=== PATIENT | female | born 1960 | race Caucasian/White ===

== ENCOUNTER → 2020-10-19 11:11 | Outpatient (CLI) | payer BC, SELFPAY ==
--- NOTE | ~2020-10-19 | XR_ITS ---
EXAMINATION: XR hip RT min 3V w AP pelvis INDICATION: Right hip pain TECHNIQUE: AP view of the pelvis and two views of the right hip are obtained. COMPARISON: None available FINDINGS: Bone alignment is normal. There is no fracture. Mild hip osteoarthritis is noted. There are phleboliths of the left pelvis. Soft tissue calcifications are noted near the left hip. A moderate v olume of colonic stool is present. IMPRESSION: 1. Mild osteoarthritis without acute osseous abnormality. Reviewed, dictated and finalized at location A. R
== END ==
PROVIDERS: PCP Nurse Practitioner; Visit Provider Nurse Practitioner
DX: M16.11 Unilateral primary osteoarthritis, right hip (principal)
CPT/HCPCS: 73502

== ENCOUNTER → 2021-11-01 08:51 | Outpatient (CLI) | payer BC, SELFPAY ==
--- NOTE | ~2021-11-01 | DEXA_ITS ---
Bone Density Report Name: EMILY BURNHAM Age: 61 Sex: Female Ethnicity: White Date of : 1960 Indication: postmenopausal; screening for osteoporosis; height loss; asthma or emphysema; postmenopausal Referring Provider: RABIA, MIKHAIL Study: Bone densitometry was performed. Exam Date: November 01, 2021 Accession number: [id number] Bone Density: Region BMD T-score Z-score Classification AP Spine (L1-L4) 0.893 -1.4 0.1 Osteopenia Femoral Neck (Left) 0.680 -1.5 -0.2 Osteopenia Total Hip (Left) 0.789 -1.3 -0.2 Osteopenia Femoral Neck (Right) 0.689 -1.4 -0.1 Osteopenia Total Hip (Right) 0.794 -1.2 -0.2 Osteopenia Total Hip Mean 0.792 -1.3 -0.2 Osteopenia World Health Organization criteria for BMD impression classify patients as: Normal (T-score at or above -1.0), Osteopenia (T-score between -1.0 and -2.5), or Osteoporosis (T-score at or below -2.5). 10-year Fracture Risk(1): Major Osteoporotic Fracture 7.9% Hip Fracture 0.7% Reported Risk Factors: [place] (), Neck BMD=0.680, BMI=22.8 (1) FRAX(R) Version 3.08. Fracture probability calculated for an untreated patient. Fracture probability may be lower if the patient has received treatment. Previous Exams: Region Exam Age BMD T-score BMD Change BMD Change Date g/cm2 vs Baseline vs Previous AP Spine(L1-L4) 11/01/2021 61 0.893 -1.4 -0.066* -0.066* 12/20/2015 55 0.959 -0.8 Total Hip(Left) 11/01/2021 61 0.789 -1.3 -0.054* -0.054* 12/20/2015 55 0.843 -0.8 Total Hip(Right) 11/01/2021 61 0.794 -1.2 -0.058* -0.058* 12/20/2015 55 0.852 -0.7 *Denotes significance at 95% confidence level, LSC for AP Spine = 0.022 g/cm2, LSC for Total Hip = 0.027 g/cm2 Clinical Information Provided by Patient: Has used the following medications: Vitamin D, Calcium, MTV Has the following medical conditions: Asthma or Emphysema Patient maximum height was 64.5 Menopause Age: 53 Does not regularly consume dairy products Drinks caffeinated beverages Onset of menses at age 13 Number of children 2 Impression: The patient has low bone mass, based on the Left Femoral Neck T-score. The patient has an estimated ten-year risk of hip fracture of 0.7% and an estimated ten-year risk of major fracture of 7.9%, based on the WHO FRAX algorithm. The BMD for the AP Spine(L1-L4) decreased, changing by -0.066 since the last DXA exam. The BMD for the Total Hip(Le
== END ==
PROVIDERS: PCP Nurse Practitioner; Visit Provider Obstetrics & Gynecology
DX: Z78.0 Asymptomatic menopausal state (principal); Z91.89 Other specified personal risk factors, not elsewhere classified; M85.88 Other specified disorders of bone density and structure, other site; M85.852 Other specified disorders of bone density and structure, left thigh; M85.851 Other specified disorders of bone density and structure, right thigh
CPT/HCPCS: 77080

== ENCOUNTER 2023-06-26 10:15 | Outpatient (CLI) | payer BC, SELFPAY ==
[2023-06-26 19:05] LABS: Basophils Absolute Auto 0.1 K/mm3 (0.0-0.1); Basophils Percent Auto 1.3 % (0.2-1.2); Eosinophils Absolute Auto 0.4 K/mm3 (0-0.3); Eosinophils Percent Auto 7.3 % (0-4.4); Hematocrit 44.2 % (37.0-47.0); Hemoglobin 14.1 g/dL (12.0-15.0); Immature Granulocyte Absolute 0.01 K/mm3 (0.00-0.031); Immature Granulocyte Percent A 0.2 % (0-0.5); Lymphocytes Absolute Auto 1.78 K/mm3 (0.9-3.2); Lymphocytes Percent Auto 34.2 % (18.3-44.2); Mean Corpuscular HGB Conc 31.9 g/dl (32-36); Mean Corpuscular Hemoglobin 31.1 pg (26-34); Mean Corpuscular Volume 97.6 fl (80-100); Mean Platelet Volume 10.2 fl (7.4-10.4); Monocytes Absolute Auto 0.5 K/mm3 (0.1-0.6); Monocytes Percent Auto 9.6 % (2.6-8.5); Neutrophils Absolute Auto 2.5 K/mm3 (1.3-6.7); Neutrophils Percent Auto 47.4 % (45.5-73.1); Platelet Count Result 274 k/mm3 (150-375); Red Blood Count 4.53 M/mm3 (4.2-5.4); Red Cell Distribution Width 13.1 % (11.5-14.5); White Blood Count 5.2 K/mm3 (4.5-10.0)
[2023-06-26 20:29] LABS: Alanine Aminotransferase 24 U/L (6-35); Albumin Level 4.5 g/dL (3.5-5.1); Alkaline Phosphatase 53 U/L (38-126); Anion Gap 9 mmol/L (8-16); Aspartate Amino Transferase 43 U/L (14-36); Bilirubin,Total 0.4 mg/dL (0.2-1.3); Blood Urea Nitrogen 18 mg/dL (7-17); Calcium 9.6 mg/dL (8.4-10.2); Carbon Dioxide 28 mmol/L (22-30); Chloride 105 mmol/L (98-107); Cholesterol 180 mg/dL (0-200); Estimated Glomerular Filt Rate > 60; Glucose 87 mg/dL (65-110); HDL Direct 59 mg/dL; Sodium 142 mmol/L (137-145); Triglycerides 62 mg/dL (<150)
[2023-06-26 20:39] LABS: LDL Cholesterol Direct 88 mg/dL
[2023-06-29 11:31] LABS: Vitamin D 1,25 (OH)2 Total 44 pg/mL (18-72); Vitamin D2 1,25 (OH)2 <8 pg/mL; Vitamin D3 1,25 (OH)2 44 pg/mL
== END 2023-06-26 10:16 | disposition home or self-care (01) ==
LOC: ANHGOSHLAB 10:17
PROVIDERS: PCP Family Medicine; Visit Provider Nurse Practitioner Family
DX: E55.9 Vitamin D deficiency, unspecified (principal); I10 Essential (primary) hypertension
CPT/HCPCS: 36415; 80053; 80061; 82652; 85025

== ENCOUNTER 2024-07-15 10:58 | Outpatient (CLI) | payer BC, SELFPAY ==
--- NOTE | ~2024-07-15 | MR_ITS ---
EXAMINATION: MR lumbar spine wo con DATE: 07/15/2024 14:35 INDICATION: Lumbar radiculopathy TECHNIQUE: Magnetic resonance imaging (MRI) of the lumbar spine was performed without intravenous con trast. Sequences included sagittal T2-weighted FSE, sagittal T2-weighted FS FSE, sagittal T1-weighted FSE, and axial T2-weighted FSE. COMPARISON: None FINDINGS: 13 degree thoracolumbar dextroscoliosis. Sagittal alignment is normal. Vertebral body heights are nor mal. Moderate disc height loss at T11-T12. Mild disc height loss at T12-L1 and mild left-sided predom inant disc height loss at T9-T10, T10-T11, L1-L2 and L2-L3. Mild associated fibrovascular degenerativ e endplate changes at a few levels most prominent at T11-T12. There is also a small T1 hyperintense h emangioma at L1. Marrow signal is otherwise unremarkable. The conus medullaris terminates at L2. Ther e is normal signal in the caudal spinal cord. Paravertebral soft tissues are unremarkable. The follow ing disc levels are specifically discussed: T12: Disc is bulging. There is moderate bilateral facet joint osteoarthritis. There is moderate bilat eral neural foraminal stenosis. There is mild central canal stenosis. T12-L1: Disc is bulging. There is moderate left and severe right facet joint osteoarthritis. There is mild bilateral neural foraminal stenosis. There is mild central canal stenosis. L1-L2: Disc is bulging. There is mild left and moderate right facet joint osteoarthritis. There is mi ld bilateral neural foraminal stenosis. There is mild central canal stenosis. L2-L3: Minimal bilateral foraminal disc protrusions. There is hypertrophy of the ligamentum flavum. T here is mild left and moderate right facet joint osteoarthritis. There is mild bilateral neural shima inal stenosis. There is mild central canal stenosis. L3-L4: Small bilateral foraminal zone disc protrusions. There is hypertrophy of the ligamentum flavum . There is moderate bilateral facet joint osteoarthritis. There is mild bilateral neural foraminal st enosis. There is mild central canal stenosis. L4-L5: Disc is bulging. There is hypertrophy of the ligamentum flavum. There is severe bilateral fac et joint osteoarthritis. There is moderate bilateral neural foraminal stenosis. There is moderate to severe central canal stenosis with minimal CSF signal surrounding the centrally clustered nerve roots . L5-S1: Disc is mildly bulging with annular fissure. There is severe bilateral facet joint osteoarthri tis. There is mild bilateral neural foraminal stenosis. There is mild central canal stenosis. IMPRESSION: 1. 13 degree thoracolumbar dextroscoliosis most notable for moderate to severe central canal stenosis at L4-L5. Reviewed, dictated and finalized at location A.
== END 2024-07-15 10:59 | disposition home or self-care (01) ==
PROVIDERS: PCP Family Medicine; Visit Provider Orthopaedic Surgery
DX: M48.061 Spinal stenosis, lumbar region without neurogenic claudication (principal); M41.85 Other forms of scoliosis, thoracolumbar region
CPT/HCPCS: 72148

== ENCOUNTER 2025-02-12 13:50 | Outpatient (CLI) | payer BC, SELFPAY ==
--- NOTE | ~2025-02-12 | DEXA_ITS ---
Bone Density Report Name: EMILY BURNHAM Age: 64 Sex: Female Ethnicity: White Date of : 1960 Indication: postmenopausal; screening for osteoporosis; height loss; asthma or emphysema; Referring Provider: SANTOS, GRICELDA Gutiérrez Study: Bone densitometry was performed. Exam Date: February 12, 2025 Accession number: [id number] Bone Density: Region BMD T-score Z-score Classification AP Spine(L1-L4) 0.984 -0.6 1.1 Normal Femoral Neck (Left) 0.642 -1.9 -0.4 Osteopenia Total Hip (Left) 0.824 -1.0 0.2 Normal Femoral Neck (Right) 0.675 -1.6 -0.1 Osteopenia Total Hip (Right) 0.838 -0.9 0.3 Normal Total Hip Mean 0.831 -1.0 0.3 Normal World Health Organization criteria for BMD impression classify patients as: Normal (T-score at or above -1.0), Osteopenia (T-score between -1.0 and -2.5), or Osteoporosis (T-score at or below -2.5). 10-year Fracture Risk(1): Major Osteoporotic Fracture 9.5% Hip Fracture 1.3% Reported Risk Factors: [place] (), Neck BMD=0.642, BMI=23.2 (1) FRAX(R) Version 3.08. Fracture probability calculated for an untreated patient. Fracture probability may be lower if the patient has received treatment. Clinical Information Provided by Patient: Has used the following medications: Vitamin D, Calcium Has the following medical conditions: Asthma or Emphysema Patient maximum height was 64.5 Menopause Age: 50 Does not regularly consume dairy products Drinks caffeinated beverages Onset of menses at age 13 Number of children 2 Impression: The patient has low bone mass, based on the Left Femoral Neck T-score. The patient has an estimated ten-year risk of hip fracture of 1.3% and an estimated ten-year risk of major fracture of 9.5%, based on the WHO FRAX algorithm. Discussion: BONE DENSITY IS LOW AT ONE OR MORE SKELETAL SITES. This patient's lowest T-score is low at one or more skeletal sites. It meets the World Health Organization's (WHO) criteria for ?low bone mass? (T-score between -1.0 and -2.5). The patient's 10-year risk of fracture as calculated by FRAX is less than the threshold where pharmacological therapy is recommended by the National Osteoporosis Foundation (NOF). However, all treatment decisions require clinical judgment and consideration of individual patient factors, including patient preferences, comorbidities, previous drug use, risk factors not captured in the FRAX model (e.g., frailty, falls, vitamin D deficiency, increased bone turnover, interval significant decline in bone density) and possible under or overestimation of fracture risk by FRAX. The patient should follow a healthful lifestyle (good nutrition with adequate calcium and vitamin D, and appropriate weight-bearing exercise). Follow-Up: Consider repeating this study in 2 to 3 years to reassess this patient's status, or sooner if there is some new clinical indication. Reported by: FAIZAN on 02/12/2025 2:36:00 PM. Reviewed, dictated and finalized at location AAlisha CHEEMA
--- OUTSIDE RECORDS SUMMARY | 2025-02-12 14:09 | XMS_ITS | Referral Summary ---
Author Organization [facility] Address [address] [place] [address] Care Team Providers Care [employer] Name Role Phone Orin Garcia DO Primary Care Provider [phone] Encounters Date Type Department Care Team Description 02/11/2025 Telephone [facility] [address] [place] [address] [address] [place] [address] Tavia Blood MD dexa scan 12/31/2024 Telephone [facility] [address] [place] [address] [address] [place] [address] Tavia Blood MD Orders Follow Up from Last 3 Months Allergies No known active allergies Medications albuterol HFA (PROVENTIL HFA,VENTOLIN HFA,PROAIR HFA) 90 mcg/actuation inhaler every 6 hours 3 Active multivitamin tablet Active ibuprofen (ADVIL,MOTRIN) 200 mg tab/cap Activ e EPINEPHrine 0.3 mg/0.3 mL auto-injection syringe use one injector as needed for anaphylaxis/ home immunotherapy 2 Active acyclovir (ZOVIRAX) 400 mg tablet Take 1 tablet (400 mg total) by mouth daily 3 9 Active traZODone (DESYREL) 300 mg tablet Active hydrocortisone 2.5 % cream APPLY TOPICALLY TO AFFECTED AREA TWICE DAILY NEEDED FOR SKIN IRRITATION 0 Active simvastatin (ZOCOR) 10 mg tablet Take 1 tablet (10 mg total) by mouth daily 0 Active cetirizine (ZyrTEC) 10 mg tablet Take 1 tablet (10 mg total) by mouth daily Active citalopram (CeleXA) 20 mg tablet Take 1 tablet (20 mg total) by mouth daily 1 Active fluticasone propionate (FLONASE) 50 mcg/actuation nasal spray Administer 1 spray into each nostril daily Active budesonide (PULMICORT INHAL) Inhale Active prasterone, dhea, (Intrarosa) 6.5 mg insertIndicati ons:Atrophic vaginitis Insert 6.5 mg into the vagina daily 30 each 11 2 Active Additional Information Patient not taking.Reported on 10/20/2024 cream base no.52, bulk, creamIndicatio ns:Dyspareunia in female Testosterone 0.1%, APPLY 1 CLICK (0.25 MG) TO FINGER AND APPLY VAGINALLY DAILY 10 g 2 4 Active Active Problems Problem Noted Date Diagnosed Date Dyspareunia in female 01/01/2023 Overview (01/01/2023): No better after estrace cream and imvexxy 01/01/23- some better with DHEA(interrosa) Assessment & Plan (10/20/2024 4:25 PM MERCHANDISE PROCESSOR): Better with testosterone . She is due in a few weeks through [facility] Assessment & Plan (09/24/2023 10:37 AM MERCHANDISE PROCESSOR): Doing well with testosterone cream. Will continue on Libido is some better She is getting off her antidepressants too. Assessment & Plan (01/01/2023 3:41 PM CDT): Will try testosterone cream Use reviewed Potential side effects discussed Well woman exam 09/18/2022 Overview (10/20/2024): Lab: Pap: h/o abhl remote. S/p cryo. Normal since. NILM 2023 Pcp is following labs. Ledy: 2023 Colonoscopy:2020- to repeat 2027 BMD:2021 -1.5 will repeat Gardasil: she thinks she may have had. Assessment & Plan (10/20/2024 4:26 PM MERCHANDISE PROCESSOR): Pap done. RTO 12m. I will send the results to the portal. If she has not heard in a week, to call the office. Assessment & Plan (09/24/2023 11:02 AM MERCHANDISE PROCESSOR): Pap done. RTO 12m. I will send the results to the portal. If she has not heard in a week, to call the office. Assessment & Plan (01/01/2023 3:45 PM CDT): Due in August 2023 Assessment & Plan (09/18/2022 3:24 PM MERCHANDISE PROCESSOR): Pap done. RTO 12m. I will send the results to the portal. If she has not heard in a week, to call the office. Adenomatous polyp 08/03/2021 Overview (08/03/2021): Added automatically from request for surgery [id number] Benign colonic polyp 05/25/2016 Excessive cerumen in ear canal 12/15/2015 Allergic rhinitis due to mold 12/15/2015 Chronic tonsillitis 12/15/2015 Sebaceous cyst 11/24/2015 Acne vulgaris 08/11/2015 Keratinizing cyst 08/11/2015 Keratosis, senilis 08/11/2015 Lichen sclerosus et atrophicus 10/10/2014 Assessment & Plan (10/20/2024 4:27 PM MERCHANDISE PROCESSOR): Occ dry Itching is better Assessment & Plan (01/01/2023 3:40 PM CDT): Skin looks healthy today Assessment & Plan (09/18/2022 3:23 PM MERCHANDISE PROCESSOR): I do not see any evidence of this today Asymmetrical sensorineural hearing loss 02/11/20 13 Chronic infection of sinus 08/01/2010 Resolved Problems Problem Noted Date Diagnosed Date Resolved Date Atrophic vaginitis 10/10/2014 Assessment & Plan (09/18/2022 3:23 PM MERCHANDISE PROCESSOR): Options dicussed Will try the interosa Use reviewed If it doesn't work, may try some testosterone cream. Vaginal irritation 10/09/2014 0 Menopausal symptom 03/07/2014 0 Overview (01/26/2017): SYMPT FEM CLIMACT STATE Social History Tobacco Use Types Packs/Day Years Used Date Smoking Tobacco: Former Cigarettes Smokeless Tobacco: Never Tobacco Cessation:Counseling Given: Not Answered Comments:40 years ago Alcohol Use Standard Drinks/Week Comments Yes 0 (1 standard drink = 0.6 oz pur e alcohol) socially Humiliation, Afraid, Rape, and Kick questionnair e Answer Date Recorded Within the last year, have y ou been afraid of your partner or ex-partner? No 10/20/2024 Within the last year, have y ou been humiliated or emotionally abused in other ways by your partner or ex-partner? No Within the last year, have y ou been kicked, hit, slapped, or otherwise physically hurt by your partner or ex-partner? No 10/20/2024 Within the last year, have y ou been raped or forced to have any kind of sexual activity by your partner or ex-partner? No 10/20/2024 AUDIT-C Answer Date Recorded Q1: How often do you have a drink containing alcohol? 4 or more times a week 09/18/2022 Q2: How many drinks containi ng alcohol do you have on a typical day when you are drinking? 5 or 6 Q3: How often do you have si x or more drinks on one occasion? Daily or almost daily 09/18/2022 PHQ-2 Answer Date Recorded PHQ-2 Total Score (If total score is 3 or more points, staff should administer the PHQ-9) 0 10/20/2024 Comments No Sex and Gender Information Value Date Recorded Sex Assigned at Not on file Legal Sex Female 12:48 AM MERCHANDISE PROCESSOR Gender Identity Not on file Sexual Orientation Not on file Last Filed Vital Signs Vital Sign Reading Time Taken Comments Blood Pressure 130/80 10/20/2024 3:37 PM MERCHANDISE PROCESSOR Pulse 68 09/24/2023 10:24 AM MERCHANDISE PROCESSOR Temperature 36.3 C (97.3 F) 09/23/2021 3:49 PM MERCHANDISE PROCESSOR Respiratory Rate 41 09/23/2021 3:49 PM MERCHANDISE PROCESSOR Oxygen Saturation 98% 09/23/2021 3:49 PM MERCHANDISE PROCESSOR Inhaled Oxygen Concentration - - Weight 61.2 kg (135 lb) 10/20/2024 3:37 PM MERCHANDISE PROCESSOR Height 160 cm (5' 3 ) 10/20/2024 3:37 PM MERCHANDISE PROCESSOR Body Mass Index 23.91 10/20/2024 3:37 PM MERCHANDISE PROCESSOR Plan of Treatment Not on file Procedures Procedure Name Priority Date/Time Associated Diagnosis Comments PAP AND HPV, REFLEX TO HPV GENOTYPES Routine 10/20/2024 4:42 PM MERCHANDISE PROCESSOR Well woman exam SCREENING MAMMOGRAM BILATERAL W KM Schedule Routine, Read Routine (OP Routine) 09/23/2024 1:06 PM MERCHANDISE PROCESSOR Screening mammogram, encounter for COLONOSCOPY 09/23/2021 2:20 PM MERCHANDISE PROCESSOR from Last 3 Months or Most Recently Relevant to Health Maintenance Results * Pap and HPV, reflex to HPV Genotypes (10/20/2024 4:42 PM MERCHANDISE PROCESSOR) CLINICAL INFORMATION: [facility] Comment:WWE LMP [facility] [[email or web address]] [facility] Comment:UNKNOWN Previous Pap [facility] Comment:NONE GIVEN Prev. Bx [facility] [[email or web address]] [facility] Comment:NONE GIVEN SOURCE: [facility] Comment:Cervix, Endocervix Pap, specimen adequacy [facility] Comment:SATISFACTORY FOR GEETA LUATION HPV interp [facility] [[email or web address]] [facility] Comment: Cytology Results: Negative for intraepithelial lesion or malignancy. Atrophic pattern; predominantly parabasal cells COMMENTS [facility] Comment: This Pap test has been evaluated with computer assisted technology. Occupational Therapy Aide [facility] Comment: TMK, CT(ASCP) CT screening location: [place] [address] [place] [address] Comment [facility] [[email or web address]] [facility] Comment: EXPLANATORY NOTE: The Pap is a screening test for cervical cancer. It is not a diagnostic test and is subject to false negative and false positive results. It is most reliable when a satisfactory sample, regularly obtained, is submitted with relevant clinical findings and history, and when the Pap result is evaluated along with historic and current clinical information. Human papillomavirus DNA, High Risk E6/E7 Not Detected NOT DETECTED [facility] Comment: Not Detected High Risk HPV types (16,18,31,33,35,39,45,51,52, 56,58,59,66,68) were not detected. Other HPV types which cause anogenital lesions may be present. The significance of the other types of HPV in malignant processes has not been established. Methodology: Real Time PCR Thin prep-Endocervica l 10/20/2024 4:42 PM MERCHANDISE PROCESSOR 10/21/2024 1:34 AM MERCHANDISE PROCESSOR Tavia Blood MD LAB CYTOLOGY ORDERA BLES Final Result [facility] [address] [place] [address] [address] * Screening Mammogram Bilateral [address] (09/23/2024 1:06 PM MERCHANDISE PROCESSOR) Anatomical Region Laterality Modality Breast Bilateral Mammography 09/23/2024 1:48 PM MERCHANDISE PROCESSOR Impressions 09/23/2024 1:48 PM MERCHANDISE PROCESSOR No evidence of malignancy in either breast. FINAL ASSESSMENT: BI-RADS Category 1: Negative. RECOMMENDATION: Recommend return for annual screening mammogram in 12 months. Electronically signed by: Raegan Piedra M.D. Narrative 09/23/2024 1:48 PM MERCHANDISE PROCESSOR EXAMINATION: BILATERAL SCREENING MAMMOGRAM COMPARISON: Dating back to 2014 TECHNIQUE: Full-field 2D and digital breast tomosynthesis (DBT) images were obtained. CAD was utilized. BREAST PARENCHYMAL COMPOSITION: There are scattered areas of fibroglandular density. FINDINGS: There is no suspicious mass, calcification, or distortion in either breast. Self Screening Mammogram IMG MAMMO PROCEDURES Fi nal Result * COLONOSCOPY (09/23/2021 2:20 PM MERCHANDISE PROCESSOR) Anatomical Region Laterality Modality Other Narrative Procedure Note Michael Figueroa MD - 09/23/2021 2:20 PM CST ENDOSCOPY LAB Patient Name: Milly Burnham Procedure Date: 09/23/2021 2:20 PM Date of : 1960 Admit Type: Outpatient Age: 61 Gender: Female Attending MD: Michael Figueroa M.D. Room: [facility] ENDOSCOPY ROOM 03 Note Status: Finalized Procedure: Colonoscopy Indications: High risk colon cancer surveillance: Personalhistory of colonic polyps, Last colonoscopy: August2016 Providers: Michael Figueroa M.D. Referring MD: Katherine Sanders NP Medicines: Monitored Anesthesia Care Complications: No immediate complications. Estimated Blood Loss: Estimated blood loss: none. Procedure: Pre-Anesthesia Assessment: - Prior to the procedure, a History and Physicalwas performed, and patient medications, allergies and sensitivities were reviewed. The patient'stolerance of previous anesthesia was reviewed. The benefits, risks and alternatives of theprocedure and sedation were discussed and informed consentwas obtained. All questions were answered. Please referto the signed informed consent document in the medical record. The scope was passed under direct vision.The [id number] was introduced through the anusand advanced to the cecum, identified by appendiceal orifice and ileocecal valve. The colonoscopy was performed without difficulty. The patient tolerated the procedure well. The quality of the bowel preparation was evaluated using the BBPS (BostonBowel Preparation Scale) with scores of: Right Colon = 2 (minor amount of residual staining, small fragmentsof stool and/or opaque liquid, but mucosa seen well), Transverse Colon = 2 (minor amount of residual staining, small fragments of stool and/or opaque liquid, but mucosa seen well) and Left Colon = 2 (minor amount of residual staining, small fragmentsof stool and/or opaque liquid, but mucosa seen well).The total BBPS score equals 6. Findings: The digital rectal exam was normal. A 4 mm polyp was found in the sigmoid colon. The polyp was sessile.The polyp was removed with a cold snare. Resection and retrieval were complete. Internal hemorrhoids were found during retroflexion. The hemorrhoids were small. The exam was otherwise without abnormality. Impression: - One 4 mm polyp in the sigmoid colon, removed witha cold snare. Resected and retrieved. - Internal hemorrhoids. - The examination was otherwise normal. Recommendation: - Await pathology results. - Repeat colonoscopy in 7 years for surveillance. Attending Participation: I personally performed the entire procedure. Electronically signed by Michael Figueroa MD Michael Figueroa M.D. 09/23/2021 3:32:04 PM Number of Addenda: 0 Note Initiated On: 09/23/2021 2:20 PM Michael Figueroa MD ENDOSCOPY PROCEDURES Final Re sult from Last 3 Months or Most Recently Relevant to Health Maintenance Insurance [facility] Advance Directives For more information, please contact: [phone] * Full Code (Latest Code Status on File) Date Activated Date Inactivated Comments 09/23/2021 12:46 PM 09/23/2021 8:08 PM Care Teams [employer] Relationship Specialty Start Date End Date Orin Garcia DO PCP - General Family Medicine 08/02/23
--- OUTSIDE RECORDS SUMMARY | 2025-02-12 14:09 | XMS_ITS ---
Author Organization [facility] ([address]) Address [address] [place] [address] Care Team Providers Care Foreign Exchange Dealer Name Role Phone Michael Day Primary Care Provider Unavailab kj Viky Gaffney Unavailable [phone] Colette Valencia Unavailable Unavailable Allergies Allergen (clinical drug ingredient) Drug/Non Drug Allergy documented on EMR Reaction Allergy Type Onset Date Status Penicillin vomiting Drug Allergy Active REASON FOR VISIT ARC follow-up - much improved with immunotherapy and sinus surgery Medications Medication SIG (Take, Route, Frequency, Duration) Notes Start Date End Date Status Fluticasone Propionate Diskus 50 MCG/ACT INHALE 1 PUFF EVERY 12 HOURS Inhalation Active SIT (TRADITIONAL) variable per schedule SC per schedule for to be determined Not-Taking Auvi-Q 0.3 MG/0.3ML 0.3 mg intramuscularly once for 1 dose(s) Active FLEXERIL *Please review for potential replacement for e-prescription and drug interaction check* Active Calcium 600 + D 600 MG-200 UNITS 1 TAB(S) ORALLY 3 TIMES A DAY for 30 DAY(S) *Please review and pick correct strength-formula tion from Shun[employer]wa[employer] options. If intended option is not shown, discontinue and re-order from Quick Search* Active Acyclovir 400 MG 1 tab(s) orally once Active traZODone HCl 50MG 1 BY MOUTH AT BEDTIME *Please review and pick correct strength-formula tion from Shun[employer]wa[employer] options. If intended option is not shown, discontinue and re-order from Quick Search* Active CORTIZONE-5 0.5% 1 IVÁN APPLIED TOPICALLY 4 TIMES A DAY for 14 DAY(S) *Please review for potential replacement for e-prescription and drug interaction check* Active FLONASE 50 mcg/inh 1 spray(s) intranasally once a day Active XYZAL 5 mg 1 tablet PO daily fo r 30 Active Citalopram Hydrobromide 20 MG 1 tab(s) orally once a day for 30 day(s) Active Opzelura 1.5 % 1 iván applied topically 2 times a day Active Restasis 0.05 % 1 gtt in each affected eye every 12 hours for 30 day(s) Active AUVI -Q 0.3 mg 0.3 mg intramuscularly once for 1 dose(s) Active NASAL WASHES N/A as directed intranasally as needed for 30 Active Ibuprofen 200 MG 2 tab(s) orally ever y 6 hours Active Cetirizine HCl 10 MG 1 tab(s) orally once a day Active Simvastatin 10 MG 1 tab(s) orally once a day (in the evening) Active Flonase Allergy Relief 50 MCG/ACT 1 spray(s) intranasally once a day Active Social History Tobacco Use: Social History Observation Description Date Details (start date - stop date) Former Smoker NA - NA Smoking Smart Form: Question Answer Notes Additional Findings:Tobacco Non-User Never chewe d tobacco Are you a: former smoker Vital Signs Blood pressure systolic 130 mm Hg 11/05/19 25 Blood pressure diastolic 86 mm Hg 025 Height 64 in 11/05/2024 Weight 140.0 lbs 11/05/2024 BMI 24.03 kg/m2 11/05/2024 Oximetry 98 % 11/05/2024 Encounters Encounter Location Date Provider Diagnosis [facility] [address] [address] 11/05/2024 Viky Gaffney Mild persistent asthma, uncomplicated J45.30 ; Chronic sinusitis, unspecified J32.9 ; Allergic rhinitis due to pollen J30.1 ; Allergic rhinitis due to animal (cat) (dog) hair and dander J30.81 ; Other allergic rhinitis J30.89 and Other chronic allergic conjunctivitis H10.45 Assessments Encounter Date Diagnosis (ICD Code) Assessment Notes Treatment Notes Treatment Clinical Notes Section Notes 11/05/2024 Mild persistent asthma, uncomplicated (ICD-10 - J45.30) Milly has persistent asthma which appears under good control with Flovent. ACT 25. Normal spirometry at last check. PCP has be refilling Flovent. No improvement in the past with Singulair. Asthma action plan reviewed. 11/05/2024 Chronic sinusitis, unspecified (ICD-10 - J32.9) Milly has a history of chronic sinusitis and much improvement following sinus surgery and immunotherapy. Prior labs showed IgG 875, IgA 185, IgM 71, normal T&B cells, normal tetanus. S. Pneumo +07/14 serotypes, low HIB. After receiving Pneumovax, S. Pneumo +10/13 serotypes. 11/05/2024 Allergic rhinitis due to pollen (ICD-10 - J30.1) Milly clearly suffers from atopic disease based upon history and our skin testing. She has received over 5 years of immunotherapy and good control of rhinitis. She would like to discontinue immunotherapy at this time. Instructed to call the office if symptoms increase in the Spring. 11/05/2024 Allergic rhinitis due to animal (cat) (dog) hair and dander (ICD-10 - J30.81) 11/05/2024 Other allergic rhinitis (ICD-10 - J30.89) 11/05/2024 Other chronic allergic conjunctivitis (ICD-10 - H10.45) Given ocular signs and symptoms I encouraged allergy avoidance measures and meds as above. If symptoms persist, consider adding additional medications including intraocular antihistamine/mas t cell stabilizer, PRN 11/05/2024 Other Plan Of Treatment Medication Medication Name Sig Start Date Stop Date Notes Fluticasone Propionate Diskus 50 MCG/ACT INHALE 1 PUFF EVERY 12 HOURS Inhalation FLONASE 50 mcg/inh 1 spray(s) intranasa lly once a day XYZAL 5 mg 1 tablet PO daily for 30 AUVI -Q 0.3 mg 0.3 mg intramuscular ly once for 1 dose(s) NASAL WASHES N/A as directed intranas ally as needed for 30 Treatment Notes Assessment Notes Mild persistent asthma, uncomplicated Gomez has persistent asthma which appears under good control with Flovent. ACT 25. Normal spirometry at last check. PCP has be refilling Flovent. No improvement in the past with Singulair. Asthma action plan reviewed. Chronic sinusitis, unspecified Milly head s a history of chronic sinusitis and much improvement following sinus surgery and immunotherapy. Prior labs showed IgG 875, IgA 185, IgM 71, normal T&B cells, normal tetanus. S. Pneumo +9/23 serotypes, low HIB. After receiving Pneumovax, S. Pneumo +12/23 serotypes. Allergic rhinitis due to pollen Milly stovall suffers from atopic disease based upon history and our skin testing. She has received over 5 years of immunotherapy and good control of rhinitis. She would like to discontinue immunotherapy at this time. Instructed to call the office if symptoms increase in the Spring. Other chronic allergic conjunctivitis Given ocular signs and symptoms I encouraged allergy avoidance measures and meds as above. If symptoms persist, consider adding additional medications including intraocular antihistamine/mast cell stabilizer, PRN Next Appt Details Follow Up: 6 Months, Reason: Spirometry/Flow Volume Loop Progress Notes * Awilda BURNHAMNaomiB:1960 (64 yo F)Acc No.[id number]:11/05/2024 Progress Notes Patient: Milly OBREGON Provider: Ashley Gaffney MD :1960 A ge:64 Y S ex:Female Date:11/05/2024 Address:[address] [place] [address] [id number] Pcp:Michael Day Subjective: * Chief Complaints: * A RC follow-up - much improved with immunotherapy and sinus surgery * HPI: A sthma follow-up: Asthma Survey - Classification A sthma severity classification M ild Persistent * Introduction: I had the pleasure of seeing Catrachito albawarren Burnham, a 64 year old with asthma, allergic rhinitis, and recurrent HSV-1 presenting for f/u evaluation of rhinitis. She was last evaluated 11-21-2023. Since starting immunotherapy and sinus surgery in 2022 improvement in congestion and rhinorrhea.? She continues Flonase and Zyrtec. Sinus surgery was performed 08-21-2023 with balloon sinuplasty and repair of deviated septum. Improvement in frequent of sinusitis. She has only required antibiotics once in the last year. Asthma has been under good control with Flovent. She develops a cough when decreases the dosing. No night symptoms or decrease in exercise tolerance. Her PCP is prescribing Flovent.? Milly has a history of frequent sinusitis and bronchitis. Prior to starting immunotherapy, she r eported frequent eye itching, sneezing, PND, headaches and congestion which occur throughout the year but increase spring and fall months. Grass, tree pollen, and ragweed seem to be a trigger. No history of hospitalization for asthma and last ER visit over 30 years ago. She received SCIT in grade school and her early 30's [address] Dr. Mckinley. She received allergy drops from [facility] for 5 years and started about 10 years ago. She developed dizziness with high dose penicillin for sinusitis several years ago. She tolerates amoxcillin. Today, she reports no fevers, chills, night sweats or other constitutional symptoms. * ROS: A LLERGY: Positive p er the HPI and history, otherwise unremarkable.? S PECIAL SENSES: Positve for n one. C ONSTITUTIONAL: Positive for n one. E NT: Positive p er the HPI and history, otherwise unremarkable.? R ESPIRATORY: Positive p er the HPI and history, otherwise unremakable.? O PHTHALMOLOGY: Positive for p er the HPI and history, otherwise unremarkable. E NDOCRINOLOGY: Positive for n one. C ARDIOLOGY: Positive for n one. G ASTROENTEROLOGY: Positive for n one. U ROLOGY: Positive for n one. D ERMATOLOGY: Positive for p er the HPI and history, otherwise unremakable. N EUROLOGY: Positive for n one. H EMATOLOGY/LYMPH: Positive for n one. M USCULOSKELETAL: Positive for n one. P SYCHOLOGY: Positive for n one. A ll other review of systems per the HPI and history, otherwise unremarkable. * Medical History: * Surgical History: R hinoplasty 2012Balloon sinuplasty 07/2023 * Hospitalization/Major Diagno stic Procedure: D enies Past Hospitalization * Family History: F ather: alive, Yes, diagnosed with Hypertension, Stroke, Heart Disease. M other: alive, Yes, diagnosed with Diabetes mellitus type I, Hypertension. S iblings: alive, Yes. Nathaniel bolden: alive, Yes. 2 brother(s) - healthy. 1 son(s) , 1 daughter(s) - healthy. . * Social History: M arital Status What is your marital status? m arried Nathaniel bolden Do you have children? Y es A lcohol Screening Do you ever drink alcoholic beverages? Y es C affeine: Yes. S moking Have you ever smoked tobacco: f ormer smoker Additional Findings: Tobacco Non-User I ntolerant non-smoker How old were you when you started smoking? 1 7 How old were you when you quit smoking? 2 2 How many cigarettes a day did you smoke? 1 1 to 20 Are you a : f ormer smoker S moking Smart Form Additional Findings:Tobacco Non-User N ever chewed tobacco Are you a: f ormer smoker R ecreational drug use Have you ever used recreational drugs? N o D etails on consumption of certain products? Do you regularly consume products with aspartame; Equal or NutraSweet? Y es Do you regularly consume products with artificial coloring??No Have you ever noticed worsening of your rash with these food items? N o E xercise What kind(s) of exercise do you perform regularly? w alking,biking,yoga,cardio How often do you perform this exercise? d aily A re any of the following personal care products containing fragrance, dye or preservatives used regularly? Shampoo: Y es Conditioner: Y es Soap: Y es Laundry Detergent: Y es Fabric Softener: Y es Deodorant: Y es Perfume, cologne, after shave: N o Air freshners or other scented products: Y es Hair coloring dyes or rinses: Y es O ccupation Are you currenly employed? N o Have you had any job with high exposure to fumes, chemicals, dust or other noxious substances? N o Are you currently a student? N o E nvironmental History Living environment: p rivate home Where is the home located? [place] Age of home: 2 2 How long have you lived there? 5 years or more How many people live in the home? 2 H ome description Basement: Y es Any water damage in basement? N o Smokers in the home? N o Smokers outside the home? N o Air Conditioning? Y es Central Air? Y es Forced air heating? Y es Gas or electric? g as Fireplace? Y es Wood burning stove? N o Do you vacuum the home? Y es Air purification systems? N o Pillow and mattress dust-proof encasings? Y es Do you use a humidifier? Y es Whole house or room? w hole house humidifier Does it have a humidistat? Y es Is it used year-round, seasonal, or as needed? s easonal Is the humidifier cleaned regularly? Y es Do you own any pets? N o Fabric softeners used? Y es Plants in the home? N o Is there carpeting in your bedroom? N o Do you have aymk-ef-ysyt carpeting? N o What is the age of your mattress (years)? 2 What material(s) are used to manufacture your bedding and pillow? o ther What is the age of your pillow (years)? 4 What material are your bedding items made of? s ynthetic Do you sleep with quilts or blankets or a duvet? Y es What material? s ynthetic,natural fiber (e.g. cotton) * Medications: T akingNASAL WASHES N/A 1 QUART OF STERILIZED TAP WATER OR DISTILLED WATER, 1 TSP NACL, 1 PINCH OF BAKING SODA DIRECTED INTRANASALLY NEEDED , Notes to Pharmacist: *Please review for potential replacement for e-prescription and drug interaction check*Flonase Allergy Relief 50 MCG/ACT Suspension 1 spray(s) intranasally once a day Simvastatin 10 MG Tablet 1 tab(s) orally once a day (in the evening) Ibuprofen 200 MG Tablet 2 tab(s) orally every 6 hours Cetirizine HCl 10 MG Tablet 1 tab(s) orally once a day Restasis 0.05 % Emulsion 1 gtt in each affected eye every 12 hours Opzelura 1.5 % Cream 1 iván applied topically 2 times a day Citalopram Hydrobromide 20 MG Tablet 1 tab(s) orally once a day CORTIZONE-5 0.5% OINTMENT 1 IVÁN APPLIED TOPICALLY 4 TIMES A DAY , Notes to Pharmacist: *Please review for potential replacement for e-prescription and drug interaction check*traZODone HCl 50MG 1 BY MOUTH AT BEDTIME , Notes to Pharmacist: *Please review and pick correct strength-formulation from [employer] options. If intended option is not shown, discontinue and re-order from Quick Search*Acyclovir 400 MG Tablet 1 tab(s) orally once FLEXERIL , Notes to Pharmacist: *Please review for potential replacement for e-prescription and drug interaction check*Calcium 600 + D 600 MG-200 UNITS TABLET 1 TAB(S) ORALLY 3 TIMES A DAY , Notes to Pharmacist: *Please review and pick correct strength-formulation from [employer] options. If intended option is not shown, discontinue and re-order from Quick Search*Auvi-Q 0.3 MG/0.3ML Solution Auto-injector 0.3 mg intramuscularly once Fluticasone Propionate Diskus 50 MCG/ACT Aerosol Powder Breath Activated INHALE 1 PUFF EVERY 12 HOURS Inhalation Taking NASAL WASHES N/A 1 QUART OF STERILIZED TAP WATER OR DISTILLED WATER, 1 TSP NACL, 1 PINCH OF BAKING SODA DIRECTED INTRANASALLY NEEDED , Notes to Pharmacist: *Please review for potential replacement for e-prescription and drug interaction check*Taking Flonase Allergy Relief 50 MCG/ACT Suspension 1 spray(s) intranasally once a day Taking Simvastatin 10 MG Tablet 1 tab(s) orally once a day (in the evening) Taking Ibuprofen 200 MG Tablet 2 tab(s) orally every 6 hours Taking Cetirizine HCl 10 MG Tablet 1 tab(s) orally once a day Taking Restasis 0.05 % Emulsion 1 gtt in each affected eye every 12 hours Taking Opzelura 1.5 % Cream 1 iván applied topically 2 times a day Taking Citalopram Hydrobromide 20 MG Tablet 1 tab(s) orally once a day Taking CORTIZONE-5 0.5% OINTMENT 1 IVÁN APPLIED TOPICALLY 4 TIMES A DAY , Notes to Pharmacist: *Please review for potential replacement for e-prescription and drug interaction check*Taking traZODone HCl 50MG 1 BY MOUTH AT BEDTIME , Notes to Pharmacist: *Please review and pick correct strength-formulation from [employer] options. If intended option is not shown, discontinue and re-order from Quick Search*Taking Acyclovir 400 MG Tablet 1 tab(s) orally once Taking FLEXERIL , Notes to Pharmacist: *Please review for potential replacement for e-prescription and drug interaction check*Taking Calcium 600 + D 600 MG-200 UNITS TABLET 1 TAB(S) ORALLY 3 TIMES A DAY , Notes to Pharmacist: *Please review and pick correct strength-formulation from [employer] options. If intended option is not shown, discontinue and re-order from Quick Search*Taking Auvi-Q 0.3 MG/0.3ML Solution Auto-injector 0.3 mg intramuscularly once Taking Fluticasone Propionate Diskus 50 MCG/ACT Aerosol Powder Breath Activated INHALE 1 PUFF EVERY 12 HOURS Inhalation Not-Taking/PRNSIT (TRADITIONAL) variable see record per schedule SC per schedule Not-Taking/PRN SIT (TRADITIONAL) variable see record per schedule SC per schedule DiscontinuedSIT (TRADITIONAL) VARIABLE SEE RECORD PER SCHEDULE SC PER SCHEDULE , Notes to Pharmacist: *Please review for potential replacement for e-prescription and drug interaction check*PULMICORT FLEXHALER 180 mcg/inh powder 1 puff(s) inhaled 2 times a day XYZAL 5 mg tablet 1 tablet PO daily PULMICORT FLEXHALER 180 mcg/inh powder 1 puff(s) inhaled 2 times a day XYZAL 5 mg tablet 1 tablet PO daily FLONASE 50 mcg/inh spray 1 spray(s) intranasally once a day SIMVASTATIN 10 mg tablet 1 tab(s) orally once a day (in the evening) IBUPROFEN 200 mg tablet 2 tab(s) orally every 6 hours CETIRIZINE 10 mg tablet 1 tab(s) orally once a day RESTASIS 0.05% emulsion 1 gtt in each affected eye every 12 hours OPZELURA 1.5% cream 1 iván applied topically 2 times a day CITALOPRAM 20 mg tablet 1 tab(s) orally once a day TRAZODONE 50mg 1 by mouth at bedtime ACYCLOVIR 400 mg tablet 1 tab(s) orally once CALCIUM 600+D 600 mg-200 units tablet 1 tab(s) orally 3 times a day AUVI -Q 0.3 mg kit 0.3 mg intramuscularly once Pulmicort Flexhaler 180 MCG/ACT Aerosol Powder Breath Activated 1 puff(s) inhaled 2 times a day Xyzal Allergy 24HR 5 MG Tablet 1 tablet PO daily TRAZADONE 50MG 1 BY MOUTH AT BEDTIME , Notes to Pharmacist: *Please review for potential replacement for e-prescription and drug interaction check*PROAIR HFA 90 MCG/INH AEROSOL 2 PUFF(S) INHALED 4 TIMES A DAY , Notes to Pharmacist: *Please review for potential replacement for e-prescription and drug interaction check*Medication List reviewed and reconciled with the patientDiscontinued SIT (TRADITIONAL) VARIABLE SEE RECORD PER SCHEDULE SC PER SCHEDULE , Notes to Pharmacist: *Please review for potential replacement for e-prescription and drug interaction check*Discontinued PULMICORT FLEXHALER 180 mcg/inh powder 1 puff(s) inhaled 2 times a day Discontinued XYZAL 5 mg tablet 1 tablet PO daily Discontinued PULMICORT FLEXHALER 180 mcg/inh powder 1 puff(s) inhaled 2 times a day Discontinued XYZAL 5 mg tablet 1 tablet PO daily Discontinued FLONASE 50 mcg/inh spray 1 spray(s) intranasally once a day Discontinued SIMVASTATIN 10 mg tablet 1 tab(s) orally once a day (in the evening) Discontinued IBUPROFEN 200 mg tablet 2 tab(s) orally every 6 hours Discontinued CETIRIZINE 10 mg tablet 1 tab(s) orally once a day Discontinued RESTASIS 0.05% emulsion 1 gtt in each affected eye every 12 hours Discontinued OPZELURA 1.5% cream 1 iván applied topically 2 times a day Discontinued CITALOPRAM 20 mg tablet 1 tab(s) orally once a day Discontinued TRAZODONE 50mg 1 by mouth at bedtime Discontinued ACYCLOVIR 400 mg tablet 1 tab(s) orally once Discontinued CALCIUM 600+D 600 mg- 200 units tablet 1 tab(s) orally 3 times a day Discontinued AUVI -Q 0.3 mg kit 0.3 mg intramuscularly once Discontinued Pulmicort Flexhaler 180 MCG/ACT Aerosol Powder Breath Activated 1 puff(s) inhaled 2 times a day Discontinued Xyzal Allergy 24HR 5 MG Tablet 1 tablet PO daily Discontinued TRAZADONE 50MG 1 BY MOUTH AT BEDTIME , Notes to Pharmacist: *Please review for potential replacement for e-prescription and drug interaction check*Discontinued PROAIR HFA 90 MCG/INH AEROSOL 2 PUFF(S) INHALED 4 TIMES A DAY , Notes to Pharmacist: *Please review for potential replacement for e-prescription and drug interaction check*Medication List reviewed and reconciled with the patient * Allergies: P enicillin: vomitingno[Allergies Verified] Objective: * Vitals: B P:130/86mm Hg, HR:72/min, Pulse Oximetry:98%, ACT:25, Ht: 64 in, Wt: 140.0 lbs, BMI:24.03Index. * Examination: G eneral examination: General appearance: p leasant, well-developed, well-nourished. HEENT: c onjunctiva are clear bilaterally, no tenderness to palpation of the sinuses, TM's without evidence of acute infection, turbinates 2+ swollen and pale inferiorly bilaterally, clear rhinorrhea is present, no polyps noted, no septal perforation, posterior oropharynx is clear, no exudates, no tongue swelling, and uvula is midline. Oral cavity: n ormal, no lesions. Neck, thyroid : s upple, non-tender, no anterior cervical lymphadenopathy. Breasts : n ot performed. Heart: R RR, S1-S2, no murmurs, no rubs, no gallops. Lungs: c lear to auscultation and percussion in all lung mohan, no wheezes or crackles. Neurologic exam: u nremarkable. Skin: n ormal, no rash, dermatographism, urticaria, angioedema. Peripheral pulses: n ormal (2+) bilaterally. Back: n ormal. Extremities: n ormal ROM, no clubbing, no cyanosis, no edema. Genitalia: n ot performed. Assessment: * Assessment: 1. C hronic sinusitis, unspecified - J32.9 (Primary) 2 . M ild persistent asthma, uncomplicated - J45.30 3 . A llergic rhinitis due to pollen - J30.1 ? 4 . A llergic rhinitis due to animal (cat) (dog) hair and dander - J30.81 5. O ther allergic rhinitis - J30.89 6 . O ther chronic allergic conjunctivitis - H10.45 Plan: * Treatment: 2. M ild persistent asthma, uncomplicated Continue Fluticasone Propionate Diskus Aerosol Powder Breath Activated, 50 MCG/ACT, INHALE 1 PUFF EVERY 12 HOURS, Inhalation. Notes: Milly has persistent asthma which appears under good control with Flovent. ACT 25. Normal spirometry at last check. PCP has be refilling Flovent. No improvement in the past with Singulair. Asthma action plan reviewed. 3. A llergic rhinitis due to pollen Continue NASAL WASHES 1 quart of sterilized tap water or distilled water, 1 tsp NaCl, 1 pinch of baking soda, N/A, as directed, intranasally, as needed, 30, QS, Refills PRN; C ontinue AUVI -Q kit, 0.3 mg, 0.3 mg, intramuscularly, once, 1 dose(s), 1, Refills 0; C ontinue XYZAL tablet, 5 mg, 1 tablet, PO, daily, 30, 30, Refills 3; C ontinue FLONASE spray, 50 mcg/inh, 1 spray(s), intranasally, once a day. Notes: Milly clearly suffers from atopic disease based upon history and our skin testing. She has received over 5 years of immunotherapy and good control of rhinitis. She would like to discontinue immunotherapy at this time. Instructed to call the office if symptoms increase in the Spring. ? 4. O ther chronic allergic conjunctivitis Notes:Given ocular signs and symptoms I encouraged allergy avoidance measures and meds as above. If symptoms persist, consider adding additional medications including intraocular antihistamine/mast cell stabilizer, PRN * Procedure Codes: 9 [id number] PT-FOCUSED HLTH RISK [id number] DOC MEDS VERIFIED W/PT OR RE * Preventive Medicine: Counseling: D iet a s tolerated. E xercise C ontinue activity as usual. M edication instruction: W atch for side effects of prescribed medications, Injectable epinephrine education and instruction w/ discussion of signs and symptoms of anaphylaxis and reasons to seek urgent or emergent care, Able to return demonstration of self-injectable epinephrine. E ducation: O ur staff spent an additional 30 minutes in direct contact with the patient educating them on their current diagnoses and proper treatment and prevention of symptoms and the proper use of medications, Our staff discussed pulmonary function testing and results with the patient/family. E ducation 2: O ur staff discussed the appropriate allergen avoidance measures and medication utilization including upper airway hygiene with daily nasal washes given the patient's clinical status and diagnoses, Discussed allergy immunotherapy including the relative risks, benefits and alternatives to this treatment as an adjunctive measure to current therapy, Allergy Immunotherapy: Risks: bleeding, infection, allergic reaction, anaphylaxis = severe allergic reaction that can cause ; Benefits: reduced need for medications, improved symptoms, disease modification. Alternatives: watch/wait, change medication regimen, improve allergy avoidance measures, Our staff discussed the warning signs of anaphylaxis and the indications to use self-injectable epinephrine and seek urgent or emergent care. P atient education material sent to portal? Y paty B P Management: FIRST HYPERTENSIVE BP READING FOLLOW-UP PLAN: F ollow-up 1 month REFERRAL TO ALTERNATIVE / PRIMARY CARE PROVIDER: R maricarmenerral to general practitioner * Follow Up: 6 Months (Reason: Spirometry/Flow Volume Loop) * Billing Information: * Visit Code: 90469 Office Visit, Est Pt., Level 4. Modifiers: 25 * Procedure Codes: 22364 PT-FOCUSED HLTH RISK ASSMT. G8427 DOC MEDS VERIFIED W/PT OR RE. * TH CARE MARKETING SPECIALIST Sign off status: Completed true * Provider: Ashley Gaffney MD Date: 0 11/05/2024 Generated for Max matos/Tina/Gustavo on: 0 02/12/2025 02:09 PM CDT History and Physical Notes * HPI (History of Present Illness) Category Sub-Category Detail Notes Category Notes *Introduction I had the pleasure of seeing Milly Burnham, a 64 year old with asthma, allergic rhinitis, and recurrent HSV-1 presenting for f/u evaluation of rhinitis. She was last evaluated 11-21-2023. Since starting immunotherapy and sinus surgery in 2022 improvement in congestion and rhinorrhea. She continues Flonase and Zyrtec. Sinus surgery was performed 08-21-2023 with balloon sinuplasty and repair of deviated septum. Improvement in frequent of sinusitis. She has only required antibiotics once in the last year. Asthma has been under good control with Flovent. She develops a cough when decreases the dosing. No night symptoms or decrease in exercise tolerance. Her PCP is prescribing Flovent. Milly has a history of frequent sinusitis and bronchitis. Prior to starting immunotherapy, she reported frequent eye itching, sneezing, PND, headaches and congestion which occur throughout the year but increase spring and fall months. Grass, tree pollen, and ragweed seem to be a trigger. No history of hospitalization for asthma and last ER visit over 30 years ago. She received SCIT in grade school and her early 30's [address] Dr. Mckinley. She received allergy drops from [facility] for 5 years and started about 10 years ago. She developed dizziness with high dose penicillin for sinusitis several years ago. She tolerates amoxcillin. Today, she reports no fevers, chills, night sweats or other constitutional symptoms Asthma follow-up Asthma Survey - Classification Asthma severity classification: Mild Persistent *Allergic Rhinoconjunctivitis *Asthma *Infections *Other Rash and Contact Dermatitis *Atopic dermatitis *Urticaria *Medication allergy *Stinging Insects *Prior Evaluations and Treatments *Food allergy *Eosinophilic GI *Angioedema Examination Category Sub-Category Detail Notes Category Not es General examination HEENT: conjunctiva are clear bilaterally, no tenderness to palpation of the sinuses, TM's without evidence of acute infection, turbinates 2+ swollen and pale inferiorly bilaterally, clear rhinorrhea is present, no polyps noted, no septal perforation, posterior oropharynx is clear, no exudates, no tongue swelling, and uvula is midline Neck, thyroid : supple, non-tender, no anterior cervical lymphadenopathy Heart: RRR, S1-S2, no murmu rs, no rubs, no gallops Lungs: clear to auscultatio n and percussion in all lung mohan, no wheezes or crackles Abdomen: Extremities: normal ROM, no clubb ing, no cyanosis, no edema General appearance: pleasant, well-devel oped, well-nourished Skin: normal, no rash, dominique matographism, urticaria, angioedema Neurologic exam: unremarkable Oral cavity: normal, no lesions Breasts : not performed Peripheral pulses: normal (2+) bilatera lly Back: normal Genitalia: not performed
--- OUTSIDE RECORDS SUMMARY | 2025-02-12 14:09 | XMS_ITS ---
Author Organization [facility] [place] ([address]) Address [address] [facility] [address] [place] [address] Care Team Providers Care Cod Clerk Name Role Phone Barb Michael Primary Care Provider Unavailab Viky Lainez Unavailable [phone] Colette Valencia Unavailable Unavailable REASON FOR VISIT 2024 Allergy Testing Encounters Encounter Location Date Provider Diagnosis [address] [address] 11/04/2024 Viky Gaffney Plan Of Treatment No Information Progress Notes * Carmella BURNHAMB:1960 (64 yo F)Acc No.[id number]:11/04/2024 Patient: Joana CLEVELAND Milly :1960 A ge:64 Y S ex:Female Address:[address], [place], [address] * true * Date: Generated for Printi ng/Faxing/eTransmitting on: 0 02/12/2025 02:09 PM CDT
--- OUTSIDE RECORDS SUMMARY | 2025-02-12 14:09 | XMS_ITS | Clinical Summary ---
Author Organization [facility] Address [address] [place] [address] Care Team Providers Care Vice Provost Name Role Phone Orin Garcia DO Primary Care Provider +1- [phone] Allergies No known active allergies Medications albuterol [...] DHEA(interrosa) Assessment & Plan (10/20/2024 4:25 PM CASH CROP FARMER): Better with testosterone . She is due in a few weeks through [facility] Assessment & Plan (09/24/2023 10:37 AM CASH CROP FARMER): Doing well with testosterone cream. Will continue [...] had. Assessment & Plan (10/20/2024 4:26 PM CASH CROP FARMER): Pap done. RTO 12m. I will send the results to the portal. If she has not heard in a week, to call the office. Assessment & Plan (09/24/2023 11:02 AM CASH CROP FARMER): Pap done. RTO 12m. I will send the results to the portal. If she has not heard in a week, to call the office. Assessment & Plan (01/01/2023 3:45 PM CDT): Due in August 2023 Assessment & Plan (09/18/2022 3:24 PM CASH CROP FARMER): Pap done. RTO 12m. I will send the results to the portal. If she has not heard in a week, to call the office. Adenomatous polyp 08/03/2021 Overview (08/03/2021): Added automatically from request for surgery [id number] Benign colonic polyp 05/25/2016 Excessive cerumen in ear canal 12/15/2015 Allergic rhinitis due to mold 12/15/2015 Chronic tonsillitis 12/15/2015 Sebaceous cyst 11/24/2015 Acne vulgaris 08/11/2015 Keratinizing cyst 08/11/2015 Keratosis, senilis 08/11/2015 Lichen sclerosus et atrophicus 10/10/2014 Assessment & Plan (10/20/2024 4:27 PM CASH CROP FARMER): Occ dry Itching is better Assessment & Plan (01/01/2023 3:40 PM CDT): Skin looks healthy today Assessment & Plan (09/18/2022 3:23 PM CASH CROP FARMER): I do not see any evidence of this today Asymmetrical sensorineural hearing loss 02/11/20 13 Chronic infection of sinus 08/01/2010 Resolved Problems Problem Noted Date Diagnosed Date Resolved Date Atrophic vaginitis 10/10/2014 4 Assessment & Plan (09/18/2022 3:23 PM CASH CROP FARMER): Options dicussed Will try the interosa Use reviewed If it doesn't work, may try some testosterone cream. Vaginal irritation 10/09/2014 0 Menopausal symptom 03/07/2014 0 Overview (01/26/2017): SYMPT FEM CLIMACT STATE Encounters Date Type Department Care Team Description 02/11/2025 [address] [facility] [address] [place] [address] [address] [place] [address] Tavia Blood MD dexa scan 12/31/2024 Telephone [facility] [address] [place] [address] [address] [place] [address] Tavia Blood MD Orders Follow Up from Last 3 Months Surgical History Surgery Date Site/Laterality Comments RHINOPLASTY 10/22/2008 - 10/21/2009 [place] LAPS ABD PRTM&OMENTUM DX W/WO SPEC BR/WA SPX 10/22/1982 - 10/21/1983 NH INDUCED DILATION AND CURETTAGE Surgically Induced - (Added by Conv) HYSTEROSCOPY W/ ENDOMETRIAL ABLATION 10/22/2010 - 10/21/2011 SINUS SURGERY 10/22/2022 - 10/21/2023 Medical History Medical History Date Comments Osteoarthritis History of urinary tract infection High cholesterol Fibromyalgia Asthma Family History Medical History Relation Name Comments Hypertension Father Hypertension - (Added by TW Conv) Melanoma Father Malignant Melan king Of The Skin - (Added by TW Conv) Breast cancer Father's Sister Breast Canc er - (Added by TW Conv) Diabetes type II Mother Type 2 Diab etes Mellitus - (Added by TW Conv) Hypertension Mother Hypertension - (Added by TW Conv) Breast cancer Mother's Sister Diabetes type II Other Family hist ory of Diabetes -Type II; Breast cancer Paternal cousin Cancer Neg Hx no colon or stummel selector cancer no change cmt 10/20/24 Relation Name Status Comments Father Father's Sister Maternal cousin Alive Mother Mother's Sister Alive Other Paternal cousin Social History Tobacco Use Types Packs/Day Years [...] on file Legal Sex Female 12:48 AM CASH CROP FARMER Gender Identity Not on file Sexual Orientation Not on file Obstetrics History Para Term AB IAB SAB Ectopic Multiple Livin g Live Births 3 2 2 1 1 2 2 Date Outcome GA Total Labor Labor/2nd/3rd Weight Sex Type Anes PTL Shanda A1 A5 Name Clin IAB 1979 Term F Vag-S pont Living 1990 Term M Vag-S pont Living Last Filed Vital Signs Vital Sign Reading Time Taken Comments Blood Pressure 130/80 10/20/2024 3:37 PM CASH CROP FARMER Pulse 68 09/24/2023 10:24 AM CASH CROP FARMER Temperature 36.3 C (97.3 F) 09/23/2021 3:49 PM CASH CROP FARMER Respiratory Rate 41 09/23/2021 3:49 PM CASH CROP FARMER Oxygen Saturation 98% 09/23/2021 3:49 PM CASH CROP FARMER Inhaled Oxygen Concentration - - Weight 61.2 kg (135 lb) 10/20/2024 3:37 PM CASH CROP FARMER Height 160 cm (5' 3 ) 10/20/2024 3:37 PM CASH CROP FARMER Body Mass Index 23.91 10/20/2024 3:37 PM CASH CROP FARMER Plan of Treatment Health Maintenance Due Date Last Done Comments Hepatitis C Screening 1960 DTaP/Tdap/Td Vaccine (1 - Tdap) 1971 Hepatitis B Screening 1978 Influenza Vaccine (Season Ended) 2025 11/24/2019, 07/21/2019, 07/07/2018, Additional history exists Breast Cancer Screening-Mammogram 09/23/2025 09/23/2024, 08/16/2023, 08/02/2022, Additional history exists Cervical Cancer Screening 10/20/20252023, 09/24/2023, 09/18/2022, Additional history exists Depression Screening 10/20/2025 10/20/2024, 09/24/2023, 09/18/2022 Regular Well Visit/Exam 18-64 10/20/2025 10/20/2024, 09/24/2023, 09/18/2022, Additional history exists Colon Cancer Screening-Colonoscopy 09/23/2031 09/23/2021, 09/01/2016 Zoster Vaccine Completed 04/28/2018, 01/26/2018 Pneumococcal vaccine <65 Aged Out 07/21/2019, 11/23 No longer eligible based on patient's age to complete this topic Colon Cancer Screening-CT Colonography Discontinued 09/23/2021, 09/01/2016 Colon Cancer Screening-DNA Stool Discontinued 09/23/2021, 09/01/2016 Colon Cancer Screening-FIT Discontinued 09/23/2021, Colon Cancer Screening-Sigmoidoscopy Discontinued 09/23/2021, 09/01/2016 Procedures Procedure Name Priority Date/Time Associated Diagnosis Comments PAP AND HPV, REFLEX TO HPV GENOTYPES Routine 10/20/2024 4:42 PM CASH CROP FARMER Well woman exam SCREENING MAMMOGRAM BILATERAL W KM Schedule Routine, Read Routine (OP Routine) 09/23/2024 1:06 PM CASH CROP FARMER Screening mammogram, encounter for COLONOSCOPY 09/23/2021 2:20 PM CASH CROP FARMER from Last 3 Months or Most Recently Relevant to Health Maintenance Results * Pap and HPV, reflex to HPV Genotypes (10/20/2024 4:42 PM CASH CROP FARMER) CLINICAL INFORMATION: [email or web address] Comment:WWE LMP [email or web address] Comment:UNKNOWN Previous Pap [email or web address] Comment:NONE GIVEN Prev. Bx [email or web address] Comment:NONE GIVEN SOURCE: [facility] Comment:Cervix, Endocervix Pap, specimen adequacy [facility] Comment:SATISFACTORY FOR GEETA LUATION HPV interp [facility] Comment: Cytology Results: Negative for intraepithelial lesion or malignancy. Atrophic pattern; predominantly parabasal cells COMMENTS [facility] Comment: This Pap test has been evaluated with computer assisted technology. [facility] Comment: TMK, CT(ASCP) CT screening location: [place] [address] [address] [place] [address] [facility] Comment: EXPLANATORY NOTE: The Pap is a [...] High Risk E6/E7 Not Detected NOT DETECTED [facility] Comment: Not Detected High Risk HPV types (16,18,31,33,35,39,45,51,52, 56,58,59,66,68) were not detected. Other HPV types which cause anogenital lesions may be present. The significance of the other types of HPV in malignant processes has not been established. Methodology: Real Time PCR Thin prep-Endocervica l 10/20/2024 4:42 PM CASH CROP FARMER 10/21/2024 1:34 AM CASH CROP FARMER Tavia Blood MD LAB CYTOLOGY ORDERA BLES Final Result [facility] [address] [address] [place] [address] [address] * Screening Mammogram Bilateral W Km (09/23/2024 1:06 PM CASH CROP FARMER) Anatomical Region Laterality Modality Breast Bilateral Mammography 09/23/2024 1:48 PM CASH CROP FARMER Impressions 09/23/2024 1:48 PM CASH CROP FARMER No evidence of malignancy in either breast. FINAL ASSESSMENT: BI-RADS Category 1: Negative. RECOMMENDATION: Recommend return for annual screening mammogram in 12 months. Electronically signed by: Raegan Piedra M.D. Narrative 09/23/2024 1:48 PM CASH CROP FARMER EXAMINATION: BILATERAL SCREENING MAMMOGRAM COMPARISON: Dating back to 2014 TECHNIQUE: Full-field 2D and digital breast tomosynthesis (DBT) images were obtained. CAD was utilized. BREAST PARENCHYMAL COMPOSITION: There are scattered areas of fibroglandular density. FINDINGS: There is no suspicious mass, calcification, or distortion in either breast. us Self Screening Mammogram IMG MAMMO PROCEDURES Fi nal Result * COLONOSCOPY (09/23/2021 2:20 PM CASH CROP FARMER) Anatomical Region Laterality Modality Other Narrative Procedure Note Michael Figueroa MD - 09/23/2021 2:20 PM CST ENDOSCOPY LAB Patient Name: Milly Burnham Procedure Date: 09/23/2021 2:20 PM Date of : 1960 Admit Type: Outpatient Age: 61 Gender: Female Attending MD: Michael Figueroa M.D. Room: [facility] ENDOSCOPY ROOM 03 Note Status: Finalized Procedure: [...] The scope was passed under direct vision.The [id number] was introduced through the anusand advanced to [...] Most Recently Relevant to Health Maintenance Insurance [facility] Address: [address] [place] [address] [facility] FEDERAL Advance Directives For more information, please contact: [phone] * Full Code (Latest Code Status on File) Date Activated Date Inactivated Comments 09/23/2021 12:46 PM 09/23/2021 8:08 PM Care Teams Vice Provost Relationship Specialty Start Date End Date Orin Garcia DO PCP - General Family Medicine 08/02/23
--- OUTSIDE RECORDS SUMMARY | 2025-02-12 14:09 | XMS_ITS ---
Author Organization [facility] [place] ([address]) Address [address] [place] [address] Care Team Providers Care Professor Of Industrial Technology Name Role Phone Michael Day Primary Care Provider Unavailab Viky Lainez Unavailable [phone] Colette Valencia Unavailable Unavailable REASON FOR VISIT SCIT (Aeroallergen) Encounters Encounter Location Date Provider Diagnosis [facility] [address] [place] [address] 11/10/2024 Viky Gaffney Plan Of Treatment No Information Progress Notes * Carmella BURNHAMB:1960 (64 yo F)Acc No.[id number]:11/10/2024 SCIT-Aeroallergen Patient: Milly OBREGON Provider: Ashley Gaffney MD :1960 A ge:64 Y S ex:Female Date:11/10/2024 Address:[address], [facility] Pcp:Michael Day Subjective: * Chief Complaints: * 1 . SCIT (Aeroallergen). * Medical History: Objective: * Vitals: Assessment: Plan: * Treatment: * Billing Information: * Visit Code: * Procedure Codes: * Electronic signature of Chery Gaffney MD on 02/12/2025 at 02:09 PM CDT Sign off status: Pending * Provider: Ashley Gaffney MD Date: 0 11/10/2024 Generated for Max matos/Tina/Gustavo on: 0 02/12/2025 02:09 PM ANNABELLAT
--- OUTSIDE RECORDS SUMMARY | 2025-02-12 14:09 | XMS_ITS | Encounter Summary ---
Author Organization [facility] Address [address] [place] [address] Care Team Providers Care Flitch Hanger Name Role Phone Orin Garcia DO Primary Care Provider +1- [phone] Reason for Referral * Diagnostic Imaging (Routine) - Pending Review Specialty Diagnoses / Procedures Referred By Contac t Referred To Contact Diagnoses Screening for osteoporosis Procedures Dexa Axial and Forearm Bone Density Scan Tavia Blood MD [address] [place] [address] [address] MUNSON [address] [place] [address] Phone: tel: External Order Referral ID Status Reason Start Date Expiration Date V isits Requested Visits Authorized [id number] Pending Review 02/11/2025 03/13/2026 1 1 Reason for Visit * Reason Onset Date Comments dexa scan 02/11/2025 Encounter Details Date Type Department Care Team (Late st Contact Info) Description 02/11/2025 Telephone [facility] [address] [facility] [address] [place] [address] Tavia Blood MD [address] [place] [address] [address] MUNSON [address] [place], [place] [address] [address] dexa scan Social History Tobacco Use Types Packs/Day Years Used Date Smoking Tobacco: Former Cigarettes Smokeless Tobacco: Never Comments:40 years ago Alcohol Use Standard Drinks/Week [...] on file Legal Sex Female 12:48 AM NURSING TECH Gender Identity Not on file Sexual Orientation Not on file documented as of this encounter Miscellaneous Notes * Telephone Encounter - Sahra Redmond RN - 02/11/2025 11:27 AM CDT [facility] called for a dexa scan order for patient. Patient has an upcoming appt. I will fax order to them at [phone]. BLAS Bocanegra documented in this encounter Plan of Treatment Scheduled Orders Name Type Priority Associated Diagnoses Orde r Schedule Dexa Axial and Forearm Bone Density Scan Imaging Schedule Routine, Read Routine (OP Routine) Screening for osteoporosis Expected: 02/11/2025, Expires: 02/11/2026 documented as of this encounter Visit Diagnoses Diagnosis Screening for osteoporosis- Primary Special screening for osteoporosis documented in this encounter Care Teams Flitch Hanger Relationship Specialty Start Date End Date Orin Garcia DO PCP - General Family Medicine 08/02/23 documented as of this encounter
--- OUTSIDE RECORDS SUMMARY | 2025-02-12 14:10 | XMS_ITS | Patient Health Record ---
Author Organization [facility] [employer] [address] ([address]) Address [address] [place] [address] Care Team Providers Care Hole Digger Name Role Phone Barb Michael Primary Care Provider Unavailab le Viky Gaffney Unavailable [phone] Colette Valencia Unavailable Unavailable [employer], Provider Unavailable Unavailab le Allergies Allergen (clinical drug ingredient) Drug/Non Drug Allergy documented on EMR Reaction Allergy Type Onset Date Status Penicillin vomiting Drug Allergy Active Reason For Referral No Information Medications Medication SIG (Take, Route, Frequency, Duration) Notes Start Date End Date Status Ibuprofen 200 MG 2 tab(s) orally ever y 6 hours Active SIT (TRADITIONAL) variable per schedule SC per schedule for to be determined Not-Taking Auvi-Q 0.3 MG/0.3ML 0.3 mg intramuscularly once for 1 dose(s) Active Citalopram Hydrobromide 20 MG 1 tab(s) orally once a day for 30 day(s) Active Opzelura 1.5 % 1 floyd applied topically 2 times a day Active Restasis 0.05 % 1 gtt in each affected eye every 12 hours for 30 day(s) Active Cetirizine HCl 10 MG 1 tab(s) orally once a day Active FLONASE 50 mcg/inh 1 spray(s) intranasally once a day Active XYZAL 5 mg 1 tablet PO daily fo r 30 Active AUVI -Q 0.3 mg 0.3 mg intramuscularly once for 1 dose(s) Active NASAL WASHES N/A as directed intranasally as needed for 30 Active FLEXERIL *Please review for potential replacement for e-prescription and drug interaction check* Active Acyclovir 400 MG 1 tab(s) orally once Active Fluticasone Propionate Diskus 50 MCG/ACT INHALE 1 PUFF EVERY 12 HOURS Inhalation Active traZODone HCl 50MG 1 BY MOUTH AT BEDTIME *Please review and pick correct strength-formula tion from Availink options. If intended option is not shown, discontinue and re-order from Quick Search* Active CORTIZONE-5 0.5% 1 FLOYD APPLIED TOPICALLY 4 TIMES A DAY for 14 DAY(S) *Please review for potential replacement for e-prescription and drug interaction check* Active Simvastatin 10 MG 1 tab(s) orally once a day (in the evening) Active Flonase Allergy Relief 50 MCG/ACT 1 spray(s) intranasally once a day Active Calcium 600 + D 600 MG-200 UNITS 1 TAB(S) ORALLY 3 TIMES A DAY for 30 DAY(S) *Please review and pick correct strength-formula tion from [employer]ailink options. If intended option is not shown, discontinue and re-order from Quick Search* Active Immunizations Vaccine Route Administration Date Status Comme nts COVID-19 (Moderna) Unknown 11/11/2020 Administered COVID-19 (Moderna) Unknown 12/10/2020 Administered Flucelvax Unknown 11/24/2019 Administered Flucelvax Unknown 07/24/2020 Administered FluZone Quadrivalent Unknown 07/16/2018 Administered Po rtal Information Influenza Unknown 07/02/2018 Administered NOC Pneumovax 23 Unknown 07/06/2004 Administered Portal Information NOC Tdap Unknown 03/06/2011 Administered Portal Infor mation Allergy Immunotherapy Weekly Unknown 11/23/2007 Administered Portal Informati on Hepatitis A Unknown 01/09/2017 Administered Portal Info rmation Social History Tobacco Use: Social History Observation Description Date Details (start date - stop date) Former Smoker NA - NA Smoking Smart Form: Question Answer Notes Additional Findings:Tobacco Non-User Never chewe d tobacco Are you a: former smoker Problems Problem Type SNOMED Code ICD Code Onset Dates Problem Status W/U Status Risk Notes Problem Chronic migraine without aura, non-refractory (disorder) (069761982931085) Migraine without aura, not intractable, without status migrainosus (G43.009) Active confirmed Problem Drug induced headache (374008666150044) Drug-induced headache, not elsewhere classified, not intractable (G44.40) Active confirmed Problem Chronic allergic conjunctivitis (12673296) Other chronic allergic conjunctivitis (H10.45) Active confirmed Problem Hypotension (25243909) Other hypotension (I95.89) Active confirmed Problem Allergic rhinitis caused by pollen (disorder) (02948604) Allergic rhinitis due to pollen (J30.1) Active confirmed Problem Allergic rhinitis caused by animal hair and dander (849763884066161) Allergic rhinitis due to animal (cat) (dog) hair and dander (J30.81) Active confirmed Problem Allergic rhinitis (51251927) Other allergic rhinitis (J30.89) Active confirmed Problem Chronic sinusitis (48934161) Chronic sinusitis, unspecified (J32.9) Active confirmed Problem Uncomplicated mild persistent asthma (465897891) Mild persistent asthma, uncomplicated (J45.30) Active confirmed Problem Dizziness and giddiness (970737369) Dizziness and giddiness (R42) Active confirmed Problem Allergic rhinitis caused by pollen (disorder) (70555218) Allergic rhinitis due to pollen (J30.1) Active confirmed Problem Allergic rhinitis caused by animal hair and dander (549048942707160) Allergic rhinitis due to animal (cat) (dog) hair and dander (J30.81) Active confirmed Problem Allergic rhinitis (53820874) Other allergic rhinitis (J30.89) Active confirmed Problem Chronic allergic conjunctivitis (37728013) Other chronic allergic conjunctivitis (H10.45) Active confirmed Problem Food allergy (452729938) Allergy to other foods (Z91.018) Active confirmed Problem Chronic sinusitis (99385896) Chronic sinusitis, unspecified (J32.9) Active confirmed Vital Signs Oximetry 98 % 11/05/2024 Blood pressure diastolic 86 mm Hg 11/05/2024 Height 64 in 11/05/2024 Blood pressure systolic 130 mm Hg 11/05/2024 Weight 140.0 lbs 11/05/2024 BMI 24.03 kg/m2 11/05/2024 Encounters Encounter Location Date Provider Diagnosis [facility] - [address] [address] 04/05/2024 Provider [employer] Allergic rhinitis due to pollen J30.1 [facility] [address] [facility] [address] [place] [address] 03/03/2024 Viky Gaffney Allergic rhinitis du e to pollen J30.1 ; Allergic rhinitis due to animal (cat) (dog) hair and dander J30.81 ; Other allergic rhinitis J30.89 and Other chronic allergic conjunctivitis H10.45 [facility] [address] [place], [place] [address] [address] [place] [address] 03/31/2024 Viky Gaffney Allergic rhinitis du e to pollen J30.1 ; Allergic rhinitis due to animal (cat) (dog) hair and dander J30.81 ; Other allergic rhinitis J30.89 and Other chronic allergic conjunctivitis H10.45 [facility] [address] [place], [place] [address] [address] [place] [address] 04/28/2024 Viky Gaffney Allergic rhinitis du e to pollen J30.1 ; Allergic rhinitis due to animal (cat) (dog) hair and dander J30.81 ; Other allergic rhinitis J30.89 and Other chronic allergic conjunctivitis H10.45 [facility] [address] [place], [place] [address] [address] [address] 05/26/2024 Viky Gaffney Allergic rhinitis du e to pollen J30.1 ; Allergic rhinitis due to animal (cat) (dog) hair and dander J30.81 ; Other allergic rhinitis J30.89 and Other chronic allergic conjunctivitis H10.45 [facility] [address] [place], [place] [address] [address] [address] 06/24/2024 Viky Gaffney Allergic rhinitis du e to pollen J30.1 ; Allergic rhinitis due to animal (cat) (dog) hair and dander J30.81 ; Other allergic rhinitis J30.89 and Other chronic allergic conjunctivitis H10.45 [facility] [address] [place], [place] [address] [address] [place] [address] 07/22/2024 Viky Gaffney Allergic rhinitis du e to pollen J30.1 ; Allergic rhinitis due to animal (cat) (dog) hair and dander J30.81 ; Other allergic rhinitis J30.89 and Other chronic allergic conjunctivitis H10.45 [facility] [address] [place], [place] [address] [address] [place] [address] 08/18/2024 Viky Gaffney Allergic rhinitis du e to pollen J30.1 ; Allergic rhinitis due to animal (cat) (dog) hair and dander J30.81 ; Other allergic rhinitis J30.89 and Other chronic allergic conjunctivitis H10.45 [facility] [address] [place] [address] 09/15/2024 Viky Gaffney Allergic rhinitis du e to pollen J30.1 ; Allergic rhinitis due to animal (cat) (dog) hair and dander J30.81 ; Other allergic rhinitis J30.89 and Other chronic allergic conjunctivitis H10.[address] [address] 10/13/2024 Viky Gaffney Allergic rhinitis du e to pollen J30.1 ; Allergic rhinitis due to animal (cat) (dog) hair and dander J30.81 ; Other allergic rhinitis J30.89 and Other chronic allergic conjunctivitis H10.[address] [address] 11/05/2024 Viky Gaffney Mild persistent asthma, uncomplicated J45.30 ; Chronic sinusitis, unspecified J32.9 ; Allergic rhinitis due to pollen J30.1 ; Allergic rhinitis due to animal (cat) (dog) hair and dander J30.81 ; Other allergic rhinitis J30.89 and Other chronic allergic conjunctivitis H10.[address] [address] 04/01/2024 Viky Gaffney Allergic rhinitis du e to pollen J30.[address] [address] 11/04/2024 Viky Gaffney Assessments Encounter Date Diagnosis (ICD Code) Assessment Notes Treatment Notes Treatment Clinical Notes Section Notes 03/03/2024 Allergic rhinitis due to pollen (ICD-10 - J30.1) 03/31/2024 Allergic rhinitis due to pollen (ICD-10 - J30.1) 04/28/2024 Allergic rhinitis due to pollen (ICD-10 - J30.1) 05/26/2024 Allergic rhinitis due to pollen (ICD-10 - J30.1) 06/24/2024 Allergic rhinitis due to pollen (ICD-10 - J30.1) 07/22/2024 Allergic rhinitis due to pollen (ICD-10 - J30.1) 08/18/2024 Allergic rhinitis due to pollen (ICD-10 - J30.1) 09/15/2024 Allergic rhinitis due to pollen (ICD-10 - J30.1) 10/13/2024 Allergic rhinitis due to pollen (ICD-10 - J30.1) 04/01/2024 Allergic rhinitis due to pollen (ICD-10 - J30.1) 04/05/2024 Allergic rhinitis due to pollen (ICD-10 - J30.1) 11/05/2024 Mild persistent asthma, uncomplicated (ICD-10 - [...] normal T&B cells, normal tetanus. S. Pneumo +9 serotypes, low HIB. After receiving Pneumovax, S. [...] office if symptoms increase in the Spring. 10/13/2024 Allergic rhinitis due to animal (cat) (dog) hair and dander (ICD-10 - J30.81) 09/15/2024 Allergic rhinitis due to animal (cat) (dog) hair and dander (ICD-10 - J30.81) 08/18/2024 Allergic rhinitis due to animal (cat) (dog) hair and dander (ICD-10 - J30.81) 07/22/2024 Allergic rhinitis due to animal (cat) (dog) hair and dander (ICD-10 - J30.81) 06/24/2024 Allergic rhinitis due to animal (cat) (dog) hair and dander (ICD-10 - J30.81) 05/26/2024 Allergic rhinitis due to animal (cat) (dog) hair and dander (ICD-10 - J30.81) 04/28/2024 Allergic rhinitis due to animal (cat) (dog) hair and dander (ICD-10 - J30.81) 03/31/2024 Allergic rhinitis due to animal (cat) (dog) hair and dander (ICD-10 - J30.81) 03/03/2024 Allergic rhinitis due to animal (cat) (dog) hair and dander (ICD-10 - J30.81) 03/03/2024 Other allergic rhinitis (ICD-10 - J30.89) 03/31/2024 Other allergic rhinitis (ICD-10 - J30.89) 04/28/2024 Other allergic rhinitis (ICD-10 - J30.89) 05/26/2024 Other allergic rhinitis (ICD-10 - J30.89) 06/24/2024 Other allergic rhinitis (ICD-10 - J30.89) 07/22/2024 Other allergic rhinitis (ICD-10 - J30.89) 08/18/2024 Other allergic rhinitis (ICD-10 - J30.89) 09/15/2024 Other allergic rhinitis (ICD-10 - J30.89) 10/13/2024 Other allergic rhinitis (ICD-10 - J30.89) 11/05/2024 Allergic rhinitis due to animal (cat) (dog) hair and dander (ICD-10 - J30.81) 11/05/2024 Other allergic rhinitis (ICD-10 - J30.89) 04/28/2024 Other chronic allergic conjunctivitis (ICD-10 - H10.45) 10/13/2024 Other chronic allergic conjunctivitis (ICD-10 - H10.45) 09/15/2024 Other chronic allergic conjunctivitis (ICD-10 - H10.45) 08/18/2024 Other chronic allergic conjunctivitis (ICD-10 - H10.45) 07/22/2024 Other chronic allergic conjunctivitis (ICD-10 - H10.45) 06/24/2024 Other chronic allergic conjunctivitis (ICD-10 - H10.45) 05/26/2024 Other chronic allergic conjunctivitis (ICD-10 - H10.45) 03/31/2024 Other chronic allergic conjunctivitis (ICD-10 - H10.45) 03/03/2024 Other chronic allergic conjunctivitis (ICD-10 - H10.45) 11/05/2024 Other chronic allergic conjunctivitis (ICD-10 - H10.45) Given ocular signs and symptoms I encouraged allergy avoidance measures and meds as above. If symptoms persist, consider adding additional medications including intraocular antihistamine/mas t cell stabilizer, PRN 11/05/2024 Other Plan Of Treatment No Information Insurance Providers Payer Name Payer Address Payer Phone Subscriber Number Group Number Insured Name Patient Relationship to Insured Coverage Start Date Coverage End Date [facility] [address] [place] [address] [id number] Kenn Benítez Spouse - patient is the spouse of the insured Medical (General) History Medical History History ICD Code Fibromyalgia Acne, unspecified Insomnia, unspecified Chronic sinusitis, unspecified Allergic rhinitis due to pollen Allergic rhinitis due to animal (cat) (d og) hair and dander Other allergic rhinitis osteopenia Surgical History Surgery Date(Month/Year) Rhinoplasty 2011 Balloon sinuplasty 07/2023
--- OUTSIDE RECORDS SUMMARY | 2025-02-12 14:10 | XMS_ITS | Continuity of Care Document ---
Author Organization [facility] Address [address] [facility] [address] [place] [address] Phone Care Team Providers Care Technologist Development Name Role Phone Marcano OD, Agusto Unavailable Unavailable Procedures Procedure Date Post-op Follow-up Visit Post-op Follow-up Visit Post-op Follow-up Visit Post-op Follow-up Visit Post-op Follow-up Visit Post-op Follow-up Visit Autonomous -Lasik Comanaged Autonomous -Lasik Comanaged No Charge Contact Lens Check Refractive Evaluation Corneal Topography Corneal Topography Advance Directives Directive Yes / No Effective Date File Name No Information Encounters Encounter Description Practice Location Reason(s) For Visit Diagnoses Date Provider Providers Copied on Encounter [facility], [address] [place] [address] [address], [place], [place], [id number], tel:[phone] [facility] No Information 9-200 7 Marcano OD Agusto. [address] , [address], [place], [address], [place]. tel:[phone] [facility], [address], [place], [place], [id number], tel:[phone] [facility] No Information 8-200 7 Marcano OD Agusto. [address] , [address], [place], [address], [place]. tel:[phone] [facility], [address], [place], [place], [address], [place] tel:[phone] [facility] No Information Neal-1 9-200 7 Marcano OD Agusto. [address] , [address], [place], [place], [facility], [place]. tel:[phone] [facility], [address] [place] [address] [address], [place], [place], [address], [place] tel:[phone] [facility] No Information Neal-0 5-200 7 Marcano OD Agusto. [address] , [address], [place], [place], [facility], [place]. tel:[phone] [facility], [address] [place] [address] [address], [place], [place], [address], [place] tel:[phone] [facility] No Information Ellis-1 4-200 7 Marcano OD Agusto. [address] , [address], [place], [facility], [place]. tel:[phone] [facility], [address], [place], [place], [address], [place] tel:[phone] [facility] No Information Ellis-0 9-200 7 Marcano OD Agusto. [address] , [address], [place], [facility], [place]. tel:[phone] [facility], [address] [place] [address] [address], [place], [place], [address], [place] tel:[phone] SEC [facility] No Information Ellis-0 8-200 7 [place]. [address], [address], [place], [place], [address], [place]. tel:[phone] Referring Provider: Agusto Marcano OD A, [address], [place], [facility]. tel:[phone] [facility], [address], [place], [place], [address], tel:[phone] [facility] No Information May-0 3-200 7 Marcano OD Agusto. [address] , [address], [place], [facility], . tel:[phone] [facility], [address] [place] [address] [address], [place], [place], [address], tel:[phone] [facility] No Information Apr-2 4-200 7 Marcano OD Agusto. [address] , [address], [place], [facility], . tel:[phone] Referring Provider: [facility] [place], [address] [place] [address], [address]. tel:[phone] [facility], [address] [place] [address] [address], [place], [place], [address], tel:[phone] [facility] No Information Jan-1 9-200 7 [facility] . [address] [place] [address], [id number], . tel:[phone] Referring Provider: Agusto Maracno OD A, [address], [place], [facility]. tel:[phone] [facility], [address] [place] [address] [address], [place], [place], [address], tel:[phone] [facility] No Information Apr-1 0-200 7 [facility] . [address] [place] [address], [id number], . tel:[phone] Family History Family Member Type Diagnosis Age At Onset No Information Payers Payer name Insurance type Covered libertarian ID Authoriza tion(s) No Information Social History Type Description Quantity Date Captured Comments Sex Female Smoking Status No Information Chief Complaint And Reason For Visit No Information Reason For Referral Reason For Referral No Information History Of Present Illness Encounter Date Complaint History Of Prese nt Illness No Information Functional Status Date Functional Assessmen t No Information Instructions Date Instruction Additional Infor mation No Information Assessments Type Assessment Date No Information Patient Care Teams Name Effective Dates (start - stop) Status Members No Information
--- OUTSIDE RECORDS SUMMARY | 2025-02-12 14:56 | XMS_ITS | Encounter Summary ---
Author Organization [facility] Address [address] [place] [address] Care Team Providers Care On Site Services Specialist Name Role Phone Orin Garcia DO Primary Care Provider [phone] Reason for Referral * Diagnostic Imaging (Routine) - Pending Review Specialty Diagnoses / Procedures Referred By Contac t Referred To Contact Diagnoses Screening for osteoporosis Procedures Dexa Axial and Forearm Bone Density Scan Tavia Blood MD [address] [place] [address] [address] [place] [address] Phone: tel: External Order Referral ID Status Reason Start Date Expiration Date V isits Requested Visits Authorized [id number] Pending Review 02/11/2025 03/13/2026 1 1 Reason for Visit * Reason Onset Date Comments dexa scan 02/11/2025 Encounter Details Date Type Department Care Team (Late st Contact Info) Description 02/11/2025 Telephone [facility] | [facility] [address] [facility] [address] [place] [address] Tavia Blood MD [address] [place] [address] DR [address] [place] [address] [address] dexa scan Social History Tobacco [...] on file 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 Patient has an upcoming appt. I will fax order to them at [phone]. BLAS Bocanegra documented in this encounter Plan of Treatment Scheduled Orders Name Type Priority Associated Diagnoses Orde r Schedule Dexa Axial and Forearm Bone Density Scan Imaging Schedule Routine, Read Routine (OP Routine) Screening for osteoporosis Expected: 02/11/2025, Expires: 02/11/2026 documented as of this encounter Visit Diagnoses Diagnosis Screening for osteoporosis- Primary Special screening for osteoporosis documented in this encounter Care Teams On Site Services Specialist Relationship Specialty Start Date End Date Orin Garcia DO PCP - General Family Medicine 08/02/23 documented as of this encounter"
--- OUTSIDE RECORDS SUMMARY | 2025-02-12 14:56 | XMS_ITS | Referral Summary ---
Author Organization [facility] Address [address] [place] [address] Care Team Providers Care Care Assistant Name Role Phone Orin Garcia DO Primary Care Provider [phone]- [phone] Encounters Date Type Department Care Team Description 02/11/2025 Telephone [employer] [address] [place] [address] [address] [place] [address] Tavia Blood MD dexa scan 12/31/2024 Telephone [employer] [address] [place] [address] [address] [place] [address] Tavia Blood MD Orders Follow [...] DHEA(interrosa) Assessment & Plan (10/20/2024 4:25 PM CAT AND DOG BATHER): Better with testosterone . She is due in a few weeks through [facility] Assessment & Plan (09/24/2023 10:37 AM CAT AND DOG BATHER): Doing well with testosterone cream. Will continue [...] had. Assessment & Plan (10/20/2024 4:26 PM CAT AND DOG BATHER): Pap done. RTO 12m. I will send the results to the portal. If she has not heard in a week, to call the office. Assessment & Plan (09/24/2023 11:02 AM CAT AND DOG BATHER): Pap done. RTO 12m. I will send the results to the portal. If she has not heard in a week, to call the office. Assessment & Plan (01/01/2023 3:45 PM CDT): Due in August 2023 Assessment & Plan (09/18/2022 3:24 PM CAT AND DOG BATHER): Pap done. RTO 12m. I will send the results to the portal. If she has not heard in a week, to call the office. Adenomatous polyp 08/03/2021 Overview (08/03/2021): Added automatically from request for surgery [id number] Benign colonic polyp 05/25/2016 Excessive cerumen in ear canal 12/15/2015 Allergic rhinitis due to mold 12/15/2015 Chronic tonsillitis 12/15/2015 Sebaceous cyst 11/24/2015 Acne vulgaris 08/11/2015 Keratinizing cyst 08/11/2015 Keratosis, senilis 08/11/2015 Lichen sclerosus et atrophicus 10/10/2014 Assessment & Plan (10/20/2024 4:27 PM CAT AND DOG BATHER): Occ dry Itching is better Assessment & Plan (01/01/2023 3:40 PM CDT): Skin looks healthy today Assessment & Plan (09/18/2022 3:23 PM CAT AND DOG BATHER): I do not see any evidence of this today Asymmetrical sensorineural hearing loss 02/11/20 13 Chronic infection of sinus 08/01/2010 Resolved Problems Problem Noted Date Diagnosed Date Resolved Date Atrophic vaginitis 10/10/2014 Assessment & Plan (09/18/2022 3:23 PM CAT AND DOG BATHER): Options dicussed Will try the interosa Use [...] on file Legal Sex Female 12:48 AM CAT AND DOG BATHER Gender Identity Not on file Sexual Orientation Not on file Last Filed Vital Signs Vital Sign Reading Time Taken Comments Blood Pressure 130/80 10/20/2024 3:37 PM CAT AND DOG BATHER Pulse 68 09/24/2023 10:24 AM CAT AND DOG BATHER Temperature 36.3 C (97.3 F) 09/23/2021 3:49 PM CAT AND DOG BATHER Respiratory Rate 41 09/23/2021 3:49 PM CAT AND DOG BATHER Oxygen Saturation 98% 09/23/2021 3:49 PM CAT AND DOG BATHER Inhaled Oxygen Concentration - - Weight 61.2 kg (135 lb) 10/20/2024 3:37 PM CAT AND DOG BATHER Height 160 cm (5' 3 ) 10/20/2024 3:37 PM CAT AND DOG BATHER Body Mass Index 23.91 10/20/2024 3:37 PM CAT AND DOG BATHER Plan of Treatment Not on file Procedures Procedure Name Priority Date/Time Associated Diagnosis Comments PAP AND HPV, REFLEX TO HPV GENOTYPES Routine 10/20/2024 4:42 PM CAT AND DOG BATHER Well woman exam SCREENING MAMMOGRAM BILATERAL W KM Schedule Routine, Read Routine (OP Routine) 09/23/2024 1:06 PM CAT AND DOG BATHER Screening mammogram, encounter for COLONOSCOPY 09/23/2021 2:20 PM CAT AND DOG BATHER from Last 3 Months or Most Recently Relevant to Health Maintenance Results * Pap and HPV, reflex to HPV Genotypes (10/20/2024 4:42 PM CAT AND DOG BATHER) CLINICAL INFORMATION: [facility] Comment:WWE LMP [facility] Comment:UNKNOWN Previous Pap [facility] Comment:NONE GIVEN Prev. Bx [facility] Comment:NONE GIVEN SOURCE: [facility] Comment:Cervix, Endocervix Pap, specimen adequacy [facility] Comment:SATISFACTORY FOR GEETA LUATION HPV interp [facility] Comment: Cytology Results: Negative for intraepithelial lesion or malignancy. Atrophic pattern; predominantly parabasal cells COMMENTS [facility] Comment: This Pap test has been evaluated with computer assisted technology. Education [facility] Comment: TMK, CT(ASCP) CT screening location: [place] [address] [place] [address] Comment [facility] Comment: EXPLANATORY NOTE: The Pap is a [...] High Risk E6/E7 Not Detected NOT DETECTED [facility] [place] Comment: Not Detected High Risk HPV types (16,18,31,33,35,39,45,51,52, 56,58,59,66,68) were not detected. Other HPV types which cause anogenital lesions may be present. The significance of the other types of HPV in malignant processes has not been established. Methodology: Real Time PCR Thin prep-Endocervica l 10/20/2024 4:42 PM CAT AND DOG BATHER 10/21/2024 1:34 AM CAT AND DOG BATHER Tavia Blood MD LAB CYTOLOGY ORDERA BLES Final Result [facility] [address] [place] [address] [address] * Screening Mammogram Bilateral W Km (09/23/2024 1:06 PM CAT AND DOG BATHER) Anatomical Region Laterality Modality Breast Bilateral Mammography 09/23/2024 1:48 PM CAT AND DOG BATHER Impressions 09/23/2024 1:48 PM CAT AND DOG BATHER No evidence of malignancy in either breast. FINAL ASSESSMENT: BI-RADS Category 1: Negative. RECOMMENDATION: Recommend return for annual screening mammogram in 12 months. Electronically signed by: Raegan Piedra M.D. Narrative 09/23/2024 1:48 PM CAT AND DOG BATHER EXAMINATION: BILATERAL SCREENING MAMMOGRAM COMPARISON: Dating back to 2014 TECHNIQUE: Full-field 2D and digital breast tomosynthesis (DBT) images were obtained. CAD was utilized. BREAST PARENCHYMAL COMPOSITION: There are scattered areas of fibroglandular density. FINDINGS: There is no suspicious mass, calcification, or distortion in either breast. Self Screening Mammogram IMG MAMMO PROCEDURES Fi nal Result * COLONOSCOPY (09/23/2021 2:20 PM CAT AND DOG BATHER) Anatomical Region Laterality Modality Other Narrative Procedure Note Michael Figueroa MD - 09/23/2021 2:20 PM CST ENDOSCOPY LAB Patient Name: Milly Burnham Procedure Date: 09/23/2021 2:20 PM Date of : 1960 Admit Type: Outpatient Age: 61 Gender: Female Attending MD: Michael Figueroa M.D. Room: [facility] ENDOSCOPY ROOM 03 Note Status: Finalized Procedure: [...] The scope was passed under direct vision.The [id number] was introduced through the anusand advanced to [...] Most Recently Relevant to Health Maintenance Insurance [facility] FEDERAL [facility] Advance Directives For more information, please contact: [phone] * Full Code (Latest Code Status on File) Date Activated Date Inactivated Comments 09/23/2021 12:46 PM 09/23/2021 8:08 PM Care Teams Care Assistant Relationship Specialty Start Date End Date Orin Garcia DO PCP - General Family Medicine 08/02/23
--- OUTSIDE RECORDS SUMMARY | 2025-02-12 14:56 | XMS_ITS | Continuity of Care Document ---
Author Organization [facility] Address [address] [address] [facility] [address] [place] [address] Phone Care Team Providers Care Field Mechanic/Site Lead Name Role Phone Marcano OD, Agusto Unavailable [...] Diagnoses Date Provider Providers Copied on Encounter formerly [facility], [address] [place] [address] [address], [place], [place], [id number], tel:[phone] [facility] No Information 9-200 7 Marcano OD Agusto. [address] , [address], [place], [address], [place]. tel:[phone] formerly [facility], [address], [place], [place], [address], tel:[phone] [facility] No Information 8-200 7 Marcano OD Agusto. [address] , [address], [place], [address], [place]. tel:[phone] [facility], [address], [place], [place], [address], [place] tel:[phone] [facility] No Information Neal-1 9-200 7 Marcano OD Agusto. [address] , [address], [place], [place], [facility], [place]. tel:[phone] [facility], [address] [place] [address] [address], [place], [place], [address], [place] tel:[phone] [facility] No Information Neal-0 5-200 7 Marcano OD Augsto. [address] , [address], [place], [facility], [place]. tel:[phone] [facility], [address] [place] [address] [address], [place], [place], [address], [place] tel:[phone] [facility] No Information Ellis-1 4-200 7 Marcano OD Agusto. [address] , [address], [place], [facility], [place]. tel:[phone] [facility], [address], [place], [place], [address], [place] tel:[phone] [facility] No Information Ellis-0 9-200 7 Marcano OD Agusto. [address] , [address], [place], [facility], [place]. tel:[phone] [facility], [address] [place] [address] [address], [place], [place], [address], [place] tel:[phone] [facility] No Information Ellis-0 8-200 7 [place]. [address], [address], [place], [place], [address], [place]. tel:[phone] Referring Provider: Agusto Marcano OD A, [address], [place], [facility]. tel:[phone] [facility], [address], [place], [place], [address], tel:[phone] [facility] No Information May-0 3-200 7 Marcano OD Agusto. [address] , [address], [place], [facility], . tel:[phone] [facility], [address] [place] [address] [address], [place], [place], [address], tel:[phone] [facility] No Information Apr-2 4-200 7 Marcano OD Agusto. [address] , [address], [place], [facility], . tel:[phone] Referring Provider: [facility], [address] [place] [address], [address]. tel:[phone] [facility], [address] [place] [address] [address], [place], [place], [address], tel:[phone] [facility] No Information Jan-1 9-200 7 [facility] . [address] [place] [address], [id number], . tel:[phone] Referring Provider: Agusto Marcano OD A, [address], [place], [facility]. tel:[phone] [facility], [address] [place] [address] [address], [place], [place], [address], tel:[phone] [facility] No Information Apr-1 0-200 7 [facility] . [address] [place] [address], [id number], . tel:[phone] Family History Family Member Type Diagnosis Age At Onset No Information Payers Payer name Insurance type Covered alliance party ID Authoriza tion(s) No Information Social History [...]
--- OUTSIDE RECORDS SUMMARY | 2025-02-12 14:56 | XMS_ITS | Clinical Summary ---
Author Organization [facility] Address [address] [place] [address] Care Team Providers Care Deputy Sheriff Generalist Name Role Phone Orin Garcia DO Primary Care Provider [phone]- [phone] Allergies No known active allergies Medications albuterol [...] DHEA(interrosa) Assessment & Plan (10/20/2024 4:25 PM DIABETES MANAGER): Better with testosterone . She is due in a few weeks through [facility] Assessment & Plan (09/24/2023 10:37 AM DIABETES MANAGER): Doing well with testosterone cream. Will continue [...] had. Assessment & Plan (10/20/2024 4:26 PM DIABETES MANAGER): Pap done. RTO 12m. I will send the results to the portal. If she has not heard in a week, to call the office. Assessment & Plan (09/24/2023 11:02 AM DIABETES MANAGER): Pap done. RTO 12m. I will send the results to the portal. If she has not heard in a week, to call the office. Assessment & Plan (01/01/2023 3:45 PM CDT): Due in August 2023 Assessment & Plan (09/18/2022 3:24 PM DIABETES MANAGER): Pap done. RTO 12m. I will send the results to the portal. If she has not heard in a week, to call the office. Adenomatous polyp 08/03/2021 Overview (08/03/2021): Added automatically from request for surgery [id number] Benign colonic polyp 05/25/2016 Excessive cerumen in ear canal 12/15/2015 Allergic rhinitis due to mold 12/15/2015 Chronic tonsillitis 12/15/2015 Sebaceous cyst 11/24/2015 Acne vulgaris 08/11/2015 Keratinizing cyst 08/11/2015 Keratosis, senilis 08/11/2015 Lichen sclerosus et atrophicus 10/10/2014 Assessment & Plan (10/20/2024 4:27 PM DIABETES MANAGER): Occ dry Itching is better Assessment & Plan (01/01/2023 3:40 PM CDT): Skin looks healthy today Assessment & Plan (09/18/2022 3:23 PM DIABETES MANAGER): I do not see any evidence of this today Asymmetrical sensorineural hearing loss 02/11/20 13 Chronic infection of sinus 08/01/2010 Resolved Problems Problem Noted Date Diagnosed Date Resolved Date Atrophic vaginitis 10/10/2014 4 Assessment & Plan (09/18/2022 3:23 PM DIABETES MANAGER): Options dicussed Will try the interosa Use reviewed If it doesn't work, may try some testosterone cream. Vaginal irritation 10/09/2014 0 Menopausal symptom 03/07/2014 0 Overview (01/26/2017): SYMPT FEM CLIMACT STATE Encounters Date Type Department Care Team Description 02/11/2025 Telephone [facility] [address] [place] [address] [address] [place] [address] Tavia Blood MD dexa scan 12/31/2024 Telephone [facility] [address] [place] [address] [address] [place] [address] Tavia Blood MD Orders Follow Up from Last 3 Months Surgical History Surgery Date Site/Laterality Comments RHINOPLASTY 10/22/2008 - 10/21/2009 MS LAPS ABD PRTM&OMENTUM DX W/WO SPEC BR/WA SPX 10/22/1982 - 10/21/1983 MS INDUCED DILATION AND CURETTAGE Surgically Induced - [...] cousin Cancer Neg 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 10/20/24 Relation Name [...] on file Legal Sex Female 12:48 AM DIABETES MANAGER Gender Identity Not on file Sexual Orientation Not on file Obstetrics History Para Term AB IAB SAB Ectopic Multiple Livin g Live Births 3 2 2 1 1 2 2 Date Outcome GA Total Labor Labor/2nd/3rd Weight Sex Type Anes PTL Shadna A1 A5 Name Clin IAB 1979 Term F Vag-S pont Living 1990 Term M Vag-S pont Living Last Filed Vital Signs Vital Sign Reading Time Taken Comments Blood Pressure 130/80 10/20/2024 3:37 PM DIABETES MANAGER Pulse 68 09/24/2023 10:24 AM DIABETES MANAGER Temperature 36.3 C (97.3 F) 09/23/2021 3:49 PM DIABETES MANAGER Respiratory Rate 41 09/23/2021 3:49 PM DIABETES MANAGER Oxygen Saturation 98% 09/23/2021 3:49 PM DIABETES MANAGER Inhaled Oxygen Concentration - - Weight 61.2 kg (135 lb) 10/20/2024 3:37 PM DIABETES MANAGER Height 160 cm (5' 3 ) 10/20/2024 3:37 PM DIABETES MANAGER Body Mass Index 23.91 10/20/2024 3:37 PM DIABETES MANAGER Plan of Treatment Health Maintenance Due Date [...] TO HPV GENOTYPES Routine 10/20/2024 4:42 PM DIABETES MANAGER Well woman exam SCREENING MAMMOGRAM BILATERAL W KM Schedule Routine, Read Routine (OP Routine) 09/23/2024 1:06 PM DIABETES MANAGER Screening mammogram, encounter for COLONOSCOPY 09/23/2021 2:20 PM DIABETES MANAGER from Last 3 Months or Most Recently Relevant to Health Maintenance Results * Pap and HPV, reflex to HPV Genotypes (10/20/2024 4:42 PM DIABETES MANAGER) CLINICAL INFORMATION: [facility] Comment:WWE LMP [facility] Comment:UNKNOWN Previous Pap [facility] Comment:NONE GIVEN Prev. Bx [facility] Comment:NONE GIVEN SOURCE: [facility] Comment:Cervix, Endocervix Pap, specimen adequacy [facility] Comment:SATISFACTORY FOR GEETA LUATION HPV interp [facility] Comment: Cytology Results: Negative for intraepithelial lesion or malignancy. Atrophic pattern; predominantly parabasal cells COMMENTS [facility] Comment: This Pap test has been evaluated with computer assisted technology. [facility] Comment: TMK, CT(ASCP) CT screening location: [place] [address] [address] [address] Comment [facility] Comment: EXPLANATORY NOTE: The Pap is [...] Risk E6/E7 Not Detected NOT DETECTED [facility] Comment: Not Detected High Risk HPV types (16,18,31,33,35,39,45,51,52, 56,58,59,66,68) were not detected. Other HPV types which cause anogenital lesions may be present. The significance of the other types of HPV in malignant processes has not been established. Methodology: Real Time PCR Thin prep-Endocervica l 10/20/2024 4:42 PM DIABETES MANAGER 10/21/2024 1:34 AM DIABETES MANAGER Tavia Blood MD LAB CYTOLOGY ORDERA BLES Final Result [facility] [address] [place] [address] [address] * Screening Mammogram Bilateral W Km (09/23/2024 1:06 PM DIABETES MANAGER) Anatomical Region Laterality Modality Breast Bilateral Mammography 09/23/2024 1:48 PM DIABETES MANAGER Impressions 09/23/2024 1:48 PM DIABETES MANAGER No evidence of malignancy in either breast. FINAL ASSESSMENT: BI-RADS Category 1: Negative. RECOMMENDATION: Recommend return for annual screening mammogram in 12 months. Electronically signed by: Raegan Piedra M.D. Narrative 09/23/2024 1:48 PM DIABETES MANAGER EXAMINATION: BILATERAL SCREENING MAMMOGRAM COMPARISON: Dating back to 2014 TECHNIQUE: Full-field 2D and digital breast tomosynthesis (DBT) images were obtained. CAD was utilized. BREAST PARENCHYMAL COMPOSITION: There are scattered areas of fibroglandular density. FINDINGS: There is no suspicious mass, calcification, or distortion in either breast. us Self Screening Mammogram IMG MAMMO PROCEDURES Fi nal Result * COLONOSCOPY (09/23/2021 2:20 PM DIABETES MANAGER) Anatomical Region Laterality Modality Other Narrative Procedure Note Michael Figueroa MD - 09/23/2021 2:20 PM CST ENDOSCOPY LAB Patient Name: Milly Burnham Procedure Date: 09/23/2021 2:20 PM Date of : 1960 Admit Type: Outpatient Age: 61 Gender: Female Attending MD: Michael Figueroa M.D. Room: [facility] ENDOSCOPY ROOM 03 Note Status: Finalized Procedure: [...] The scope was passed under direct vision.The [id number] was introduced through the anusand advanced to [...] performed the entire procedure. Electronically signed by Micheal Figueroa MD Michael Figueroa M.D. 09/23/2021 3:32:04 PM Number of Addenda: 0 Note Initiated On: 09/23/2021 2:20 PM Michael Figueroa MD ENDOSCOPY PROCEDURES Final Re sult from Last 3 Months or Most Recently Relevant to Health Maintenance Insurance [facility] FEDERAL Advance Directives For more information, please contact: [phone] * Full Code (Latest Code Status on File) Date Activated Date Inactivated Comments 09/23/2021 12:46 PM 09/23/2021 8:08 PM Care Teams Deputy Sheriff Generalist Relationship Specialty Start Date End Date Orin Garcia DO PCP - General Family Medicine 08/02/23
== END 2025-02-12 13:51 | disposition home or self-care (01) ==
PROVIDERS: PCP Family Medicine; Visit Provider Obstetrics & Gynecology
DX: M85.852 Other specified disorders of bone density and structure, left thigh (principal); M85.851 Other specified disorders of bone density and structure, right thigh; Z13.820 Encounter for screening for osteoporosis
CPT/HCPCS: 77080

== ENCOUNTER 2025-02-13 13:10 | Outpatient (CLI) | payer BC, SELFPAY ==
--- NOTE | ~2025-02-13 | CT_ITS ---
EXAMINATION: CT sinus wo con DATE: 02/13/2025 13:26 INDICATION: Acute recurrent pansinusitis TECHNIQUE: Computed tomography (CT) of the paranasal sinuses was performed without intravenous contra st. The dose-length product was 295.93 mGy-cm. Automated exposure control and iterative reconstructio n technique were employed. COMPARISON: None FINDINGS: There is minimal mucosal thickening of the maxillary sinuses. Ostiomeatal units are patent. Leftward nasal septal deviation. No air-fluid levels. No mucoperiosteal reaction. Mastoids are pneum atized. IMPRESSION: 1. Mild maxillary sinus disease. Reviewed, dictated and finalized at location A.
== END 2025-02-13 13:11 | disposition home or self-care (01) ==
LOC: MICIMG 13:11
PROVIDERS: PCP Family Medicine; Visit Provider Otolaryngology
DX: J32.0 Chronic maxillary sinusitis (principal)
CPT/HCPCS: 70486